=== PATIENT | male | born 1950 | race Caucasian/White ===

== ENCOUNTER 2023-08-12 10:28 | Outpatient (AMB) | payer BC, SELFPAY ==
--- NOTE | 2023-08-12 10:39 | A.OFFPC_ITS ---
Vital Signs 08/12/23 10:51 08/12/23 10:59 Height 6 ft 1.23 in Weight 286 lb 6 oz BMI 37.5 BP 142/54 H 140/54 H Blood Pressure Location Lt brachial Lt radial Position Sitting Sitting Respiration 16 Pulse 74 Pulse Source Pulse Oximeter Temp 97.4 F Temp Source Oral Pulse Oximetry (%) 96 Oxygen Delivery Method Room Air Intake Visit Reasons: Establish Care transfer from [facility] Intake Note: New patient visit. Allergies exenatide [From [facility]] Adverse Reaction (Intermediate, Verified 08/12/23 14:38) Vomiting Medication List - Last Reconciled 08/12/23 by Joelle Bowling MD amlodipine 10 mg PO DAILY atorvastatin 80 mg PO DAILY carvedilol 25 mg PO DAILY chlorthalidone 12.5 mg PO QAM clopidogrel 75 mg PO DAILY hydralazine 25 mg PO QID levothyroxine (Synthroid) 75 mcg PO DAILY losartan 100 mg PO DAILY metformin 1,000 mg PO BID nitroglycerin mg sublingual oxycodone 5 mg PO QID PRN pioglitazone 30 mg PO DAILY tamsulosin 0.8 mg PO DAILY Tobacco use date assessed: 08/12/23 Fall risk assessment: 2 + Falls in past year Last assessed Fall Risk: 08/12/23 Dental Screening Dental Screen Date: 08/12/23 Did you have a dental visit in the last 12 months?: Yes Did you have a dental problem in the last 6 months where you did not have access to dental care?: No Was dental information given to patient?: Patient has dentist HPI HPI Comments History of Present Illness Details The patient is a 72 year old male with a past medical history of CAD s/p PCI 2006, HFPEF, hypertension, hyperlipidemia, type 2 diabetes, obesity presenting for follow up Endocrine-type 2 diabetes. On metformin & actos. Off insulin. POC A1C today is 6.9%. CAD, CKD stage 3. Eye exam UTD Dr Morales. Intolerant GLP. Hypothyroid- stable on levothyroxine CV: Follows with cardiology, Dr Perkins. On amlodipine, losartan, ASA, chlorthalidone, hydralazine, metoprolol and plavix. s/p PCI 2006, [place] post procedure. NTG prn-about 2x/year. Chronic NELSON, stable. Denies chest pain, palpitations. Echo 12/2020 mild dilation ascending aorta grade 1 diastolic dysfunction EF 55-60% Heme/Onc: Mild anemia. cologuard (-). Refuses colonoscopy. Chronic post prandial nausea. On oral B12. GI: Hepatic steatosis: CT abd/pelvis 2019 hepatic steatosis PFSH Medical History (Updated 08/12/23 @ 14:37 by Joelle Bowling MD) Hernia Severe obesity (BMI 35.0-35.9 with comorbidity) Seasonal allergies Pain in thoracic spine Obstructive sleep apnea syndrome Neoplasm of skin Mild anemia Loss of hearing Cognitive impairment Hypothyroidism Hyperlipidemia Hx of myocardial infarction Hepatic steatosis Diabetes mellitus Chronic kidney disease, stage 3 Chest pain Cervical spondylarthritis Benign prostatic hyperplasia Benign essential HTN Surgical History (Updated 08/12/23 @ 10:59 by Jovana Amado CMA) Hx of appendectomy H/O angioplasty H/O eye surgery Social History Housing: House Patient Tobacco Use Status: Former Tobacco user Cigarette Packs Per Day: 2 Years Smoked: 25 e-Cigarette/Vaping Use: Never Used Second Hand Smoke Exposure: Yes (past) service: Yes Current occupational status: retired Cognitive needs: No Hearing needs: No Vision needs: Yes (glasses) Review of Systems Const Details: ROS CONSTITUTIONAL: Denies weight loss, fever and chills. HEENT: Denies changes in vision and hearing. RESPIRATORY: Denies SOB and cough. CV: Denies palpitations and CP GI: Denies abdominal pain, nausea, vomiting and diarrhea. : Denies dysuria and urinary frequency. MSK: Denies new myalgia and joint pain. SKIN: Denies rash and pruritus. NEUROLOGICAL: Denies headache PSYCHIATRIC: Denies recent changes in mood. Physical exam (Primary Care) Vital Signs: Last Vital Signs Temp 97.4 F 08/12/23 10:51 Pulse 74 08/12/23 10:51 Resp 16 08/12/23 10:51 BP 140/54 H 08/12/23 10:59 Pulse Ox 96 08/12/23 10:51 Oxygen Delivery Method Room Air 08/12/23 10:51 PHYSICAL EXAM: GENERAL: Alert and oriented x 3. NAD EYES: EOMI. Anicteric. HENT: Moist mucous membranes. No scleral icterus. No cervical lymphadenopathy. LUNGS: Clear to auscultation bilaterally. CARDIOVASCULAR: Regular rate and rhythm. No murmur. No JVD. ABDOMEN: Soft, non-tender +bs EXTREMITIES: No edema. Non-tender. SKIN: No rashes or lesions. Warm. NEUROLOGIC: No focal neurological deficits. PSYCHIATRIC: Cooperative. Appropriate mood and affect BMI result Body Mass Index 37.5 Tobacco/Smoking Status: Tobacco use Status Tobacco use date assessed 08/12/23 08/12/23 10:47 Patient Tobacco Use Status Former Tobacco user 08/12/23 10:47 e-Cigarette/Vaping Use Never Used 08/12/23 10:47 Results AMB Hemoglobin A1c AMB Hemoglobin A1c 6.9 % Last Edit by Jovana Amado CMA on 08/12/23 11:14 Results Reviewed Results Reviewed: Laboratory Last Values Hgb A1c (Clinic) 6.9 % (4.0-6.0) H 08/12/23 11:14 Assessment and Plan Assessment & Plan (1) CAD (coronary artery disease): Comment: stable. continue follow up with cardiology Code(s): I25.10 - Atherosclerotic heart disease of [place] coronary artery without angina pectoris Qualifiers: Associated angina: with stable angina Coronary Disease-Associated Artery/Lesion type: [place] artery [place] vs. transplanted heart: [place] heart Qualified Code(s): I25.118 - Atherosclerotic heart disease of [place] coronary artery with other forms of angina pectoris (2) Type 2 diabetes mellitus: Comment: well controlled on current regimen. continued efforts at weight loss Code(s): E11.9 - Type 2 diabetes mellitus without complications Qualifiers: Chronic kidney disease stage: stage 3 (moderate) Chronic kidney disease stage 3 subtype: unspecified whether 3a or 3b Diabetes mellitus complication detail: with chronic kidney disease Diabetes mellitus complication status: with kidney complications Diabetes mellitus retirement insulin use: without termite control representative use Qualified Code(s): E11.22 - Type 2 diabetes mellitus with diabetic chronic kidney disease; N18.30 - Chronic kidney disease, stage 3 unspecified (3) Chronic kidney disease, stage 3: Code(s): N18.30 - Chronic kidney disease, stage 3 unspecified Qualifiers: Chronic kidney disease stage 3 subtype: unspecified whether 3a or 3b Qualified Code(s): N18.30 - Chronic kidney disease, stage 3 unspecified (4) Hx of myocardial infarction: Code(s): I25.2 - Old myocardial infarction (5) Family history of factor V Leiden mutation: Comment: Lab ordered Code(s): Z83.2 - Family history of diseases of the blood and blood-forming organs and certain disorders involving the immune mechanism Orders: Orders AMB Hemoglobin A1c 08/12/23 E11.9 - Type 2 diabetes mellitus without complications Factor V Leiden 08/12/23 I25.118 - Atherosclerotic heart disease of [place] coronary artery with other forms of angina pectoris, Z83.2 - Family history of diseases of the blood and blood-forming organs and certain disorders involving the immune mechanism Coding Level of Care Code Est Pt Level 5 (91771) Complex EM visit Add On G2211 Diagnoses Coronary artery disease of [place] artery of [place] heart with stable angina pectoris I25.118 Associated angina: with stable angina Coronary Disease-Associated Artery/Lesion type: [place] artery [place] vs. transplanted heart: [place] heart Type 2 diabetes mellitus with stage 3 chronic kidney disease, without long-term current use of insulin, unspecified whether stage 3a or 3b CKD E11.22; N18.30 Chronic kidney disease stage: stage 3 (moderate) Chronic kidney disease stage 3 subtype: unspecified whether 3a or 3b Diabetes mellitus complication detail: with chronic kidney disease Diabetes mellitus complication status: with kidney complications Diabetes mellitus retirement insulin use: without retirement use Stage 3 chronic kidney disease, unspecified whether stage 3a or 3b CKD N18.30 Chronic kidney disease stage 3 subtype: unspecified whether 3a or 3b Hx of myocardial infarction I25.2 Family history of factor V Leiden mutation Z83.2 Time Spent (min) 46
[2023-08-12 10:51] VITALS: BP 142/54; PULSE 74; RESP 16; TEMP 36.3; O2SAT 96; BMI 37.5
[2023-08-12 10:59] VITALS: BP 140/54
== END 2023-08-12 11:46 | disposition home or self-care (01) ==
PROVIDERS: Visit Provider Internal Medicine
DX: I25.118 Atherosclerotic heart disease of native coronary artery with other forms of angina pectoris (principal); E11.22 Type 2 diabetes mellitus with diabetic chronic kidney disease; N18.30 Chronic kidney disease, stage 3 unspecified; I25.2 Old myocardial infarction; Z83.2 Family history of diseases of the blood and blood-forming organs and certain disorders involving the immune mechanism
CPT/HCPCS: 83036; 99215

== ENCOUNTER 2023-08-12 11:36 | Outpatient (REF) | payer BC, SELFPAY ==
[2023-08-12 14:20] LABS: MANUAL DIFF FLAG NO
[2023-08-12 14:34] LABS: Basophils Percent Auto 0.4 % (0-2); Eosinophils Absolute Auto 0.2 X10*3/uL (0.0-0.4); Eosinophils Percent Auto 2.3 % (0-4); Hematocrit 36.9 % (42.0-52.0); Imm Gran Abs Auto 0.06 X10*3/uL (0.00-0.03); Imm Gran Pct Auto 0.8 % (0.0-0.4); Lymphocytes Absolute Auto 1.4 X10*3/uL (1.2-4.9); Lymphocytes Percent Auto 17.3 % (20-40); Mean Corpuscular HGB Conc 32.5 g/dl (31.0-36.0); Mean Corpuscular Hemoglobin 30.7 pg (27.0-33.0); Mean Corpuscular Volume 94.4 fL (80.0-98.0); Mean Platelet Volume 10.9 fL (9.4-12.4); Monocytes Absolute Auto 0.6 X10*3/uL (0.1-1.2); Monocytes Percent Auto 7.8 % (2-11); Neutrophils Absolute Auto 5.6 x10*3/uL (2.0-8.3); Neutrophils Percent Auto 71.4 % (45-73); Platelet Count 225 X10*3/uL (160-400); Red Blood Count 3.91 X10*6/uL (4.60-5.80); Red Cell Distribution Width 13.3 % (11.0-16.0); White Blood Count 7.9 X10*3/uL (4.8-10.8)
[2023-08-12 14:40] LABS: Alanine Aminotransferase 26 U/L (0-40); Albumin Level 4.4 g/dL (3.5-5.0); Alkaline Phosphatase 60 U/L (39-117); Anion Gap 17 (12-20); Aspartate Amino Transferase 18 U/L (5-37); Bilirubin Total 0.4 mg/dL (0.0-1.0); Blood Urea Nitrogen 32 mg/dL (9-16); Calcium 10.1 mg/dL (8.4-10.2); Carbon Dioxide 24 mmol/L (22-29); Chloride 107 mmol/L (96-108); Cholesterol 84 mg/dL (<200); Estimated Glomerular Filt Rate 53; Glucose Random 212 mg/dL (60-115); HDL Cholesterol 35 mg/dL (>40); LDL Cholesterol Calculated 34 mg/dL (<100); Potassium 4.2 mmol/L (3.3-5.1); Sodium 144 mmol/L (135-145); Total Protein 7.6 g/dL (6.5-8.0); Triglycerides 78 mg/dL (<150)
[2023-08-12 14:57] LABS: Estimated Average Glucose 146 mg/dL; Hemoglobin A1c % 6.7 % (<6.0)
[2023-08-12 14:58] LABS: Prostate Specific Antigen 0.72 ng/mL (<0.05-4.0)
[2023-08-21 20:38] LABS: Factor V Leiden NEGATIVE
== END 2023-08-12 11:37 | disposition home or self-care (01) ==
LOC: HO.WFDLDS 11:36
PROVIDERS: Visit Provider Internal Medicine
DX: E11.9 Type 2 diabetes mellitus without complications (principal); Z13.0 Encounter for screening for diseases of the blood and blood-forming organs and certain disorders involving the immune mechanism; Z12.5 Encounter for screening for malignant neoplasm of prostate; Z83.2 Family history of diseases of the blood and blood-forming organs and certain disorders involving the immune mechanism; I25.118 Atherosclerotic heart disease of native coronary artery with other forms of angina pectoris
CPT/HCPCS: 36415; 80053; 80061; 81241; 83036; 84153; 85025

== ENCOUNTER 2023-10-22 09:19 | Outpatient (REF) | payer BC, SELFPAY ==
[2023-10-22 11:26] LABS: Estimated Average Glucose 137 mg/dL; Hemoglobin A1c % 6.4 % (<6.0)
[2023-10-22 12:20] LABS: Alanine Aminotransferase 35 U/L (0-40); Albumin Level 4.3 g/dL (3.5-5.0); Alkaline Phosphatase 52 U/L (39-117); Anion Gap 11 (12-20); Aspartate Amino Transferase 21 U/L (5-37); Bilirubin Total 0.5 mg/dL (0.0-1.0); Blood Urea Nitrogen 26 mg/dL (9-16); Calcium 9.5 mg/dL (8.4-10.2); Carbon Dioxide 28 mmol/L (22-29); Chloride 105 mmol/L (96-108); Cholesterol 80 mg/dL (<200); Estimated Glomerular Filt Rate 57; Glucose Random 150 mg/dL (60-115); HDL Cholesterol 35 mg/dL (>40); Potassium 4.2 mmol/L (3.3-5.1); Sodium 140 mmol/L (135-145); Total Protein 7.5 g/dL (6.5-8.0)
[2023-10-22 12:29] LABS: LDL Cholesterol Calculated 17 mg/dL (<100); Triglycerides 142 mg/dL (<150)
== END 2023-10-22 09:20 | disposition home or self-care (01) ==
LOC: HO.WFDLDS 09:19
PROVIDERS: Visit Provider Internal Medicine
DX: E11.9 Type 2 diabetes mellitus without complications (principal)
CPT/HCPCS: 36415; 80053; 80061; 83036

== ENCOUNTER 2023-11-02 09:20 | Outpatient (AMB) | payer BC, SELFPAY ==
--- NOTE | 2023-11-02 09:27 | MHC.PC.OV ---
Vital Signs 11/02/23 09:28 Height 6 ft 1.23 in Weight 292 lb BMI 38.3 BP 140/62 H Blood Pressure Location Lt brachial Position Sitting Respiration 12 Pulse 89 Pulse Source Pulse Oximeter Pulse Oximetry (%) 96 Oxygen Delivery Method Room Air Intake Visit Reasons: DM Intake Note: Patient is her to discuss DM. Refrigeration Systems Installer Required: No Accompanied by: Self / Same As Patient Allergies exenatide [From [facility]] Adverse Reaction (Intermediate, Verified 11/02/23 09:33) Vomiting Tobacco use date assessed: 08/12/23 Dental Screening Dental Screen Date: 08/12/23 HPI HPI Comments History of Present Illness Details The patient is a 73 year old male with a past medical history of CAD s/p PCI 2006, HFPEF, hypertension, hyperlipidemia, type 2 diabetes, obesity presenting for follow up Endocrine-type 2 diabetes. On metformin & actos. Off insulin. Recent A1C 6.4%. CAD, CKD stage 3. Eye exam UTD Dr Morales. Intolerant GLP. Hypothyroid-stable on levothyroxine CV: Follows with cardiology, Dr Perkins. On amlodipine, losartan, ASA, chlorthalidone, hydralazine, metoprolol and plavix. s/p PCI 2006, [place] post procedure. NTG prn-about 2x/year. Chronic NELSON, stable. Denies chest pain, palpitations. Echo 12/2020 mild dilation ascending aorta grade 1 diastolic dysfunction EF 55-60% Heme/Onc: Mild anemia. cologuard (-). Refuses colonoscopy. Chronic post prandial nausea. On oral B12. GI: Hepatic steatosis: CT abd/pelvis 2019 hepatic steatosis Eye exam 10/2023-no retinopathy. Will likely have an upcoming cataract surgery ROS see HPI PHYSICAL EXAM: GENERAL: Alert and oriented x 3. NAD EYES: EOMI. Anicteric. HENT: Moist mucous membranes. No scleral icterus. No cervical lymphadenopathy. LUNGS: Clear to auscultation bilaterally. CARDIOVASCULAR: Regular rate and rhythm. No murmur. No JVD. ABDOMEN: Soft, non-tender +bs EXTREMITIES: No edema. Non-tender. SKIN: No rashes or lesions. Warm. NEUROLOGIC: No focal neurological deficits. CN II-XII grossly intact PSYCHIATRIC: Cooperative. Appropriate mood and affect [facility] Medical History Hernia Severe obesity (BMI 35.0-35.9 with comorbidity) Seasonal allergies Pain in thoracic spine Obstructive sleep apnea syndrome Neoplasm of skin Mild anemia Loss of hearing Cognitive impairment Hypothyroidism Hyperlipidemia Hx of myocardial infarction Hepatic steatosis Diabetes mellitus Chronic kidney disease, stage 3 Chest pain Cervical spondylarthritis Benign prostatic hyperplasia Benign essential HTN Surgical History Hx of appendectomy H/O angioplasty H/O eye surgery Social History Housing: House Patient Tobacco Use Status: Former Tobacco user Cigarette Packs Per Day: 2 Years Smoked: 25 e-Cigarette/Vaping Use: Never Used Second Hand Smoke Exposure: Yes (past) service: Yes Current occupational status: retired Cognitive needs: No Hearing needs: No Vision needs: Yes (glasses) Physical exam (Primary Care) Vital Signs: Last Vital Signs Pulse 89 11/02/23 09:28 Resp 12 11/02/23 09:28 BP 140/62 H 11/02/23 09:28 Pulse Ox 96 11/02/23 09:28 Oxygen Delivery Method Room Air 11/02/23 09:28 BMI result Body Mass Index 38.3 Tobacco/Smoking Status: Tobacco use Status Tobacco use date assessed 08/12/23 11/02/23 09:34 Patient Tobacco Use Status Former Tobacco user 11/02/23 09:34 e-Cigarette/Vaping Use Never Used 11/02/23 09:34 Assessment and Plan Assessment & Plan (1) Type 2 diabetes mellitus: Code(s): E11.9 - Type 2 diabetes mellitus without complications Qualifiers: Diabetes mellitus retirement insulin use: without retirement use Diabetes mellitus complication status: with kidney complications Diabetes mellitus complication detail: with chronic kidney disease Chronic kidney disease stage: stage 3 (moderate) Chronic kidney disease stage 3 subtype: unspecified whether 3a or 3b Qualified Code(s): E11.22 - Type 2 diabetes mellitus with diabetic chronic kidney disease; N18.30 - Chronic kidney disease, stage 3 unspecified Plan: Controlled on current medications (2) Hypothyroidism: Code(s): E03.9 - Hypothyroidism, unspecified Qualifiers: Hypothyroidism type: unspecified Qualified Code(s): E03.9 - Hypothyroidism, unspecified Plan: Clinically and biochemically euthyroid (3) Chronic kidney disease, stage 3: Code(s): N18.30 - Chronic kidney disease, stage 3 unspecified Qualifiers: Chronic kidney disease stage 3 subtype: unspecified whether 3a or 3b Qualified Code(s): N18.30 - Chronic kidney disease, stage 3 unspecified Plan: stable Orders: Orders Comprehensive Met. Panel 4 Months E03.9 - Hypothyroidism, unspecified, E11.22 - Type 2 diabetes mellitus with diabetic chronic kidney disease, E11.9 - Type 2 diabetes mellitus without complications, N18.30 - Chronic kidney disease, stage 3 unspecified Hemoglobin A1c 4 Months E03.9 - Hypothyroidism, unspecified, E11.22 - Type 2 diabetes mellitus with diabetic chronic kidney disease, E11.9 - Type 2 diabetes mellitus without complications, N18.30 - Chronic kidney disease, stage 3 unspecified IRON PROFILE 4 Months E03.9 - Hypothyroidism, unspecified, E11.22 - Type 2 diabetes mellitus with diabetic chronic kidney disease, N18.30 - Chronic kidney disease, stage 3 unspecified Complete Blood Count Auto Diff 4 Months E03.9 - Hypothyroidism, unspecified, E11.22 - Type 2 diabetes mellitus with diabetic chronic kidney disease, E11.9 - Type 2 diabetes mellitus without complications, N18.30 - Chronic kidney disease, stage 3 unspecified Lipid Panel 4 Months E03.9 - Hypothyroidism, unspecified, E11.22 - Type 2 diabetes mellitus with diabetic chronic kidney disease, E11.9 - Type 2 diabetes mellitus without complications, N18.30 - Chronic kidney disease, stage 3 unspecified Prostate Specific Antigen 4 Months E03.9 - Hypothyroidism, unspecified, E11.22 - Type 2 diabetes mellitus with diabetic chronic kidney disease, E11.9 - Type 2 diabetes mellitus without complications, N18.30 - Chronic kidney disease, stage 3 unspecified TSH reflex Free T4 4 Months E03.9 - Hypothyroidism, unspecified, E11.22 - Type 2 diabetes mellitus with diabetic chronic kidney disease, N18.30 - Chronic kidney disease, stage 3 unspecified Vitamin B12 and Folate 4 Months E03.9 - Hypothyroidism, unspecified, E11.22 - Type 2 diabetes mellitus with diabetic chronic kidney disease, N18.30 - Chronic kidney disease, stage 3 unspecified Coding Level of Care Code Est Pt Level 4 (25484) Diagnoses Type 2 diabetes mellitus with stage 3 chronic kidney disease, without long-term current use of insulin, unspecified whether stage 3a or 3b CKD E11.22; N18.30 Diabetes mellitus retirement insulin use: without technician terminal and repeater use Diabetes mellitus complication status: with kidney complications Diabetes mellitus complication detail: with chronic kidney disease Chronic kidney disease stage: stage 3 (moderate) Chronic kidney disease stage 3 subtype: unspecified whether 3a or 3b Hypothyroidism, unspecified type E03.9 Hypothyroidism type: unspecified Stage 3 chronic kidney disease, unspecified whether stage 3a or 3b CKD N18.30 Chronic kidney disease stage 3 subtype: unspecified whether 3a or 3b
[2023-11-02 09:28] VITALS: BP 140/62; PULSE 89; RESP 12; O2SAT 96; BMI 38.3
== END 2023-11-02 10:15 | disposition home or self-care (01) ==
PROVIDERS: PCP Internal Medicine; Visit Provider Internal Medicine
DX: E11.22 Type 2 diabetes mellitus with diabetic chronic kidney disease (principal); N18.30 Chronic kidney disease, stage 3 unspecified; E03.9 Hypothyroidism, unspecified
CPT/HCPCS: 99214

== ENCOUNTER 2024-03-07 15:10 | Outpatient (REF) | payer BC, SELFPAY ==
[2024-03-07 17:45] LABS: MANUAL DIFF FLAG NO
[2024-03-07 17:59] LABS: Basophils Percent Auto 0.4 % (0-2); Eosinophils Absolute Auto 0.2 X10*3/uL (0.0-0.4); Eosinophils Percent Auto 2.1 % (0-4); Hemoglobin 11.9 g/dl (14.0-18.0); Imm Gran Abs Auto 0.02 X10*3/uL (0.00-0.03); Imm Gran Pct Auto 0.3 % (0.0-0.4); Lymphocytes Absolute Auto 1.3 X10*3/uL (1.2-4.9); Mean Corpuscular Hemoglobin 30.9 pg (27.0-33.0); Mean Corpuscular Volume 90.9 fL (80.0-98.0); Mean Platelet Volume 10.5 fL (9.4-12.4); Monocytes Absolute Auto 0.8 X10*3/uL (0.1-1.2); Monocytes Percent Auto 10.7 % (2-11); Neutrophils Absolute Auto 4.9 x10*3/uL (2.0-8.3); Neutrophils Percent Auto 68.5 % (45-73); Platelet Count 221 X10*3/uL (160-400); Red Blood Count 3.85 X10*6/uL (4.60-5.80); White Blood Count 7.1 X10*3/uL (4.8-10.8)
[2024-03-07 18:15] LABS: Estimated Average Glucose 126 mg/dL; Hemoglobin A1C 129.4513 umol/L
[2024-03-07 18:34] LABS: Alanine Aminotransferase 31 U/L (0-40); Albumin Level 4.4 g/dL (3.5-5.0); Alkaline Phosphatase 56 U/L (39-117); Anion Gap 11 (12-20); Aspartate Amino Transferase 53 U/L (5-37); Bilirubin Total 0.5 mg/dL (0.0-1.0); Blood Urea Nitrogen 21 mg/dL (9-16); Calcium 9.5 mg/dL (8.4-10.2); Carbon Dioxide 25 mmol/L (22-29); Chloride 103 mmol/L (96-108); Cholesterol 72 mg/dL (<200); Estimated Glomerular Filt Rate > 60; Glucose Random 113 mg/dL (60-115); HDL Cholesterol 27 mg/dL (>40); Iron 82 mcg/dL (45-160); LDL Cholesterol Calculated 27 mg/dL (<100); Percent Iron Saturation 25 % (15-50); Potassium 3.8 mmol/L (3.3-5.1); Sodium 135 mmol/L (135-145); TSH reflex Free T4 1.71 uIU/mL (0.32-4.0); Total Iron Binding Capacity 332 mcg/dL (228-428); Total Protein 7.3 g/dL (6.5-8.0); Triglycerides 92 mg/dL (<150); Unsaturated Iron Binding 250 ug/dL
[2024-03-07 18:48] LABS: Folate 15.9 ng/mL (> or = 4.0); Prostate Specific Antigen 0.71 ng/mL (<0.05-4.0); Vitamin B12 1163 pg/mL (200-900)
== END 2024-03-07 15:11 | disposition home or self-care (01) ==
LOC: HO.WFDLDS 15:10
PROVIDERS: Visit Provider Internal Medicine
DX: E11.9 Type 2 diabetes mellitus without complications (principal); E03.9 Hypothyroidism, unspecified; E11.22 Type 2 diabetes mellitus with diabetic chronic kidney disease; N18.30 Chronic kidney disease, stage 3 unspecified; Z12.5 Encounter for screening for malignant neoplasm of prostate
CPT/HCPCS: 36415; 80053; 80061; 82607; 82746; 83036; 83540; 84153; 84443; 85025

== ENCOUNTER 2024-03-14 08:05 | Outpatient (AMB) | payer BC, SELFPAY ==
--- NOTE | 2024-03-14 08:20 | A.OFFPC_ITS ---
Vital Signs 03/14/24 08:28 Height 6 ft 1.23 in Weight 285 lb BMI 37.4 BP 136/52 L Blood Pressure Location Lt brachial Position Sitting Pulse 65 Pulse Source Pulse Oximeter Pulse Oximetry (%) 96 Intake Visit Reasons: physical exam/MWV Intake Note: Physical. Glucose this morning was 135. Needs refill on Oxycodone. Dye Worker Required: No Allergies exenatide [From Byd[employer]] Adverse Reaction (Intermediate, Verified 03/14/24 08:23) Vomiting Tobacco use date assessed: 08/12/23 Fall risk assessment: 2 + Falls in past year Last assessed Fall Risk: 03/14/24 Dental Screening Dental Screen Date: 08/12/23 HPI HPI Comments History of Present Illness Details The patient is a 73 year old male with a past medical history of RICARDO on cpap, CAD s/p PCI 2006, HFPEF, hypertension, hyperlipidemia, type 2 diabetes, obesity presenting for [facility] Endocrine-type 2 diabetes. On metformin & actos. Off insulin. Recent A1C 6.0%. CAD, CKD stage 3. Eye exam UTD Dr Morales. Intolerant GLP. Hypothyroid-stable on levothyroxine CV: Follows with cardiology, Dr Perkins. On amlodipine, losartan, ASA, chlorth alidone, hydralazine, metoprolol and plavix. s/p PCI 2006, [place] post procedure. NTG prn-about 2x/year. Chronic NELSON, stable. Denies chest pain, palpitations. Echo 12/2020 mild dilation ascending aorta grade 1 diastolic dysfunction EF 55- 60% Heme/Onc: Mild anemia. cologuard (-). Has refused colonoscopy. Chronic post prandial nausea. On oral B12. Willing to consider today as he does endorse frequent daily fatigue. Denies blood loss. Does endorse daily anxiety, some depression MSK: Worsened low back pain-daily. Stopping him from doing exercise. Would consider referral but is leaving for [place] GI: Hepatic steatosis: CT abd/pelvis 2019 hepatic steatosis Eye exam 10/2023-no retinopathy. Will likely have an upcoming cataract surgery Care team HRA reviewed. Independent. (-) fall. 3/3 recall Medications reconciled ROS see HPI PHYSICAL EXAM: GENERAL: Alert and oriented x 3. NAD EYES: EOMI. Anicteric. HENT: Moist mucous membranes. No scleral icterus. No cervical lymphadenopathy. LUNGS: Clear to auscultation bilaterally. CARDIOVASCULAR: Regular rate and rhythm. No murmur. No JVD. ABDOMEN: Soft, non-tender +bs EXTREMITIES: No edema. Non-tender. SKIN: No rashes or lesions. Warm. NEUROLOGIC: No focal neurological deficits. CN II-XII grossly intact PSYCHIATRIC: Cooperative. Appropriate mood and affect [facility] Medical History Hernia Severe obesity (BMI 35.0-35.9 with comorbidity) Seasonal allergies Pain in thoracic spine Obstructive sleep apnea syndrome Neoplasm of skin Mild anemia Loss of hearing Cognitive impairment Hypothyroidism Hyperlipidemia Hx of myocardial infarction Hepatic steatosis Diabetes mellitus Chronic kidney disease, stage 3 Chest pain Cervical spondylarthritis Benign prostatic hyperplasia Benign essential HTN Surgical History Hx of appendectomy H/O angioplasty H/O eye surgery Social History (Updated 03/14/24 @ 08:28 by Jovana Amado CMA) Housing: House Alcohol intake: former Comment: hasnt drank in 37 years Patient Tobacco Use Status: Former Tobacco user Cigarette Packs Per Day: 2 Years Smoked: 25 e-Cigarette/Vaping Use: Never Used Second Hand Smoke Exposure: Yes (past) service: Yes Current occupational status: retired Cognitive needs: No Hearing needs: No Vision needs: Yes (glasses) Questionnaire PHQ-9 Over the last 2 weeks, how often have you been bothered by any of the following problems? 1. Little interest or pleasure in doing things: more than half the days 2. Feeling down, depressed, or hopeless: not at all 3. Trouble falling or staying asleep, or sleeping too much: nearly every day 4. Feeling tired or having little energy: nearly every day 5. Poor appetite or overeating: nearly every day 6. Feeling bad about yourself - or that you are a failure or have let yourself or your family down: more than half the days 7. Trouble concentrating on things, such as reading the newspaper or watching television: not at all 8. Moving or speaking so slowly that other people could have noticed. Or the opposite - being so fidgety or restless that you have been moving around a lot more than usual: nearly every day 9. Thoughts that you would be better off or of hurting yourself in some way: not at all Total score: 16 Depression Screening Interpretation: Positive Depression Screening Follow-up: Existing condition Depression Screening Done: Yes 52321 - PHQ-9 Billing: Yes Source: Developed by Drs. Roosevelt Hood, Tracee Calle, Stephon Kennedy and colleagues, with an educational rachel from [employer]. Thrive Questionnaire Date Thrive assessed: 03/07/24 I am a: Patient What is your living situation today?: I have a steady place to live Within the past 12 months, did the food you bought not last and you didn't have the money to get more?: Never true Within the past 12 months, did you worry whether your food would run out before you got money to buy more?: Never true Do you have trouble paying for medicines?: No Do you have trouble getting transportation to medical appointments?: No Do you have trouble paying your heating and electricity bill?: No Do you have trouble taking care of your child, family member or friend?: No Do you have trouble with day-to-day activities such as bathing, preparing meals, shopping, managing finances, etc.?: No Are you currently unemployed and looking for a job?: No Are you interested in more education?: No Please select the resources that you would like help with: None Currently or been in a relationship where the following occur: No concerns reported THRIVE Score: 0 AUDIT C Alcohol Use Questionnaire (AUDIT-C) 1. How often do you have a drink containing alcohol?: Never 3. How often do you have six or more drinks on one occasion?: Never Total Score: 0 SHANNAN-7 AMB Questionnaire SHANNAN-7 Date SHANNAN - 7 assessed: 03/14/24 Feeling nervous, anxious, or on edge: 2 = More than half the days Not being able to stop or control worryin = More than half the days Worrying too much about different things: 2 = More than half the days Trouble relaxin = Several days Being so restless that it is hard to sit still: 0 = Not at all Becoming easily annoyed or irritable: 1 = Several days Feeling afraid as if something awful might happen: 1 = Several days Total SHANNAN-7 score (0-4 normal; 5-9 mild; 10-14 moderate; 15-21 severe): 9 Source: Developed by Drs. Roosevelt Hood, Tracee Calle, Stephon Kennedy and colleagues, with an educational rachel from [employer]. SHANNAN-7 Assessment Billing SHANNAN-7 Assessment Tool: SHANNAN-7 Assessment 15990 Physical exam (Primary Care) Vital Signs: Last Vital Signs Pulse 65 03/14/24 08:28 BP 136/52 L 03/14/24 08:28 Pulse Ox 96 03/14/24 08:28 BMI result Body Mass Index 37.4 Tobacco/Smoking Status: Tobacco use Status Tobacco use date assessed 08/12/23 03/14/24 08:20 Patient Tobacco Use Status Former Tobacco user 03/14/24 08:28 e-Cigarette/Vaping Use Never Used 03/14/24 08:28 PHQ-9: PHQ-9 Score PHQ-9: Total score 16 03/16/24 14:54 Depression Screening Interpretation: Positive Depression Screening Follow-up: Existing condition Thrive Assessment: Date of Thrive Assessment Date Thrive assessed 03/07/24 03/14/24 08:20 Currently or been in a relationship where the following occur: No concerns reported Coding Level of Care Code Est Pt Level 4 (64404) Diagnoses Annual wellness visit Z00.00 Type 2 diabetes mellitus with diabetic autonomic neuropathy, without long-term current use of insulin E11.43 Diabetes mellitus complication detail: with autonomic neuropathy Diabetes mellitus complication status: with neurologic complications Diabetes mellitus marketing development manager insulin use: without marketing development manager use Diabetes mellitus type: type 2 Additional Codes SHANNAN-7 Assessment Billing - SHANNAN-7 Assessment Tool: SHANNAN-7 Assessment 05553 ([id number]) PHQ-9 - 88916 - PHQ-9 Billing: Yes ([id number]) Assessment & Plan Assessment & Plan (1) Annual wellness visit: Code(s): Z00.00 - Encounter for general adult medical examination without abnormal findings Category: Medical Plan: See HPI Fatigue-referral to GI (2) Diabetes mellitus: Code(s): E11.9 - Type 2 diabetes mellitus without complications Category: Medical Qualifiers: Diabetes mellitus complication detail: with autonomic neuropathy Diabetes mellitus complication status: with neurologic complications Diabetes mellitus marketing development manager insulin use: without correction use Diabetes mellitus type: type 2 Qualified Code(s): E11.43 - Type 2 diabetes mellitus with diabetic autonomic (poly)neuropathy Plan: Controlled. decrease actos to 15mg daily Orders: Orders Lipid Panel 4 Months E11.9 - Type 2 diabetes mellitus without complications, N18.30 - Chronic kidney disease, stage 3 unspecified, Z00.00 - Encounter for general adult medical examination without abnormal findings IRON PROFILE 4 Months E11.9 - Type 2 diabetes mellitus without complications, N18.30 - Chronic kidney disease, stage 3 unspecified, Z00.00 - Encounter for general adult medical examination without abnormal findings Hemoglobin A1c 4 Months E11.9 - Type 2 diabetes mellitus without complications, N18.30 - Chronic kidney disease, stage 3 unspecified, Z00.00 - Encounter for general adult medical examination without abnormal findings Comprehensive Met. Panel 4 Months E11.9 - Type 2 diabetes mellitus without complications, N18.30 - Chronic kidney disease, stage 3 unspecified, Z00.00 - Encounter for general adult medical examination without abnormal findings Medications: New sertraline Take 1/2 tab oral once daily for one week then increase to one tablet oral daily 25 mg PO DAILY 90 tabs 0RF pioglitazone 15 mg PO DAILY 90 tabs 3RF Changed From oxycodone 5 mg PO QID PRN 112 tabs 0RF pain To oxycodone partial fill upon patient request May pay out of pocket 5 mg PO QID 7 days PRN 28 tabs 0RF pain Refilled oxycodone 5 mg PO QID PRN 112 tabs 0RF pain Discontinued pioglitazone Discontinued Reason: Doctor's Order 30 mg PO DAILY 90 tabs 3RF
[2024-03-14 08:28] VITALS: BP 136/52; PULSE 65; O2SAT 96; BMI 37.4
== END 2024-03-14 09:12 | disposition home or self-care (01) ==
PROVIDERS: PCP Internal Medicine; Visit Provider Internal Medicine
DX: Z00.00 Encounter for general adult medical examination without abnormal findings (principal); E11.43 Type 2 diabetes mellitus with diabetic autonomic (poly)neuropathy

== ENCOUNTER 2024-06-28 10:49 | Outpatient (REF) | payer BC, SELFPAY ==
[2024-06-28 15:07] LABS: Estimated Average Glucose 126 mg/dL; Hemoglobin A1C 125.0476 umol/L; Total Hemoglobin (HGBA1C) 2955.5086 umol/L
[2024-06-28 15:22] LABS: Alanine Aminotransferase 25 U/L (0-40); Alkaline Phosphatase 49 U/L (39-117); Anion Gap 11 (12-20); Bilirubin Total 0.4 mg/dL (0.0-1.0); Blood Urea Nitrogen 26 mg/dL (9-16); Calcium 9.1 mg/dL (8.4-10.2); Carbon Dioxide 25 mmol/L (22-29); Chloride 108 mmol/L (96-108); Cholesterol 76 mg/dL (<200); Estimated Glomerular Filt Rate > 60; Glucose Random 125 mg/dL (60-115); HDL Cholesterol 35 mg/dL (>40); Iron 66 mcg/dL (45-160); LDL Cholesterol Calculated 32 mg/dL (<100); Percent Iron Saturation 23 % (15-50); Potassium 3.6 mmol/L (3.3-5.1); Sodium 140 mmol/L (135-145); Total Iron Binding Capacity 292 mcg/dL (228-428); Total Protein 6.8 g/dL (6.5-8.0); Triglycerides 47 mg/dL (<150); Unsaturated Iron Binding 226 ug/dL
[2024-06-28 15:33] LABS: Aspartate Amino Transferase 48 U/L (5-37)
== END 2024-06-28 10:50 | disposition home or self-care (01) ==
LOC: HO.WFDLDS 10:49
PROVIDERS: Visit Provider Internal Medicine
DX: Z00.00 Encounter for general adult medical examination without abnormal findings (principal); N18.30 Chronic kidney disease, stage 3 unspecified; E11.9 Type 2 diabetes mellitus without complications
CPT/HCPCS: 36415; 80053; 80061; 83036; 83540

== ENCOUNTER 2024-07-04 10:10 | Outpatient (AMB) | payer BC, SELFPAY ==
--- NOTE | 2024-07-04 10:27 | MHC.PC.OV ---
Vital Signs 07/04/24 10:32 Height 6 ft 1.23 in Weight 266 lb 8 oz BMI 34.9 BP 134/58 L Blood Pressure Location Rt brachial Position Sitting Respiration 14 Pulse 61 Pulse Source Pulse Oximeter Pulse Oximetry (%) 94 Oxygen Delivery Method Room Air Intake Visit Reasons: f/u respiratory issues Intake Note: Follow up. Has respiratory infection while in [place]. Stopped taking sertraline because of a letter that pt was told not to take with clopidogrel and synthroid. Morphology Teacher Required: No Allergies exenatide [From [employer]] Adverse Reaction (Intermediate, Verified 07/04/24 10:29) Vomiting Tobacco use date assessed: 07/04/24 Dental Screening Dental Screen Date: 08/12/23 HPI HPI Comments History of Present Illness Details The patient is a 74 year old male with a past medical history of RICARDO on cpap, CAD s/p PCI 2006, HFPEF, hypertension, hyperlipidemia, type 2 diabetes, obesity presenting for follow up of breathing issues Patient with recent bronchitis in [place]. Seen at urgent care 06/03 and 06/07. On 06/03 diagnosed with acute cough/URI-prescribed azithromycin and tessalon. Negative for COVID/RSV/flu. CXR was negative. He was prescribed prednisone and cough syrup as well as prn albuterol. Received duoneb and decadron at the visit. Says finally feeling back to normal. No residual cough, wheezing. He lost 20 pounds during his illness Endocrine-type 2 diabetes. On metformin & actos. Off insulin. Recent A1C 6.0%. CAD, CKD stage 3. Eye exam UTD Dr Morales. Intolerant GLP. Hypothyroid-stable on levothyroxine CV: Follows with cardiology, Dr Perkins. On amlodipine, losartan, ASA, chlorthalidone, hydralazine, metoprolol and plavix. s/p PCI 2006, [place] post procedure. NTG prn-about 2x/year. Chronic NELSON, stable. Denies chest pain, palpitations. Echo 12/2020 mild dilation ascending aorta grade 1 diastolic dysfunction EF 55-60%. Has been having some lightheadedness with sitting to standing or bending over or moving too quickly. Denies vertigo Heme/Onc: Mild anemia. cologuard (-). Has refused colonoscopy. Chronic post prandial nausea. On oral B12. Willing to consider today as he does endorse frequent daily fatigue. Denies blood loss. Does endorse daily anxiety, some depression. Did not start the sertraline but plans to do so MSK: Worsened low back pain-daily. Stopping him from doing exercise. Would consider referral but is leaving for [place] GI: Hepatic steatosis: CT abd/pelvis 2019 hepatic steatosis Eye exam 10/2023-no retinopathy. Will likely have an upcoming cataract surgery ROS see HPI PHYSICAL EXAM: GENERAL: Alert and oriented x 3. NAD EYES: EOMI. Anicteric. HENT: Moist mucous membranes. No scleral icterus. No cervical lymphadenopathy. LUNGS: Clear to auscultation bilaterally. CARDIOVASCULAR: Regular rate and rhythm. No murmur. No JVD. ABDOMEN: Soft, non-tender +bs EXTREMITIES: No edema. Non-tender. SKIN: No rashes or lesions. Warm. NEUROLOGIC: No focal neurological deficits. CN II-XII grossly intact PSYCHIATRIC: Cooperative. Appropriate mood and affect [facility] Medical History Hernia Severe obesity (BMI 35.0-35.9 with comorbidity) Seasonal allergies Pain in thoracic spine Obstructive sleep apnea syndrome Neoplasm of skin Mild anemia Loss of hearing Cognitive impairment Hypothyroidism Hyperlipidemia Hx of myocardial infarction Hepatic steatosis Diabetes mellitus Chronic kidney disease, stage 3 Chest pain Cervical spondylarthritis Benign prostatic hyperplasia Benign essential HTN Surgical History Hx of appendectomy H/O angioplasty H/O eye surgery Social History Housing: House Alcohol intake: former Comment: hasnt drank in 37 years Patient Tobacco Use Status: Former Tobacco user Cigarette Packs Per Day: 2 Years Smoked: 25 e-Cigarette/Vaping Use: Never Used Second Hand Smoke Exposure: Yes (past) service: Yes Current occupational status: retired Cognitive needs: No Hearing needs: No Vision needs: Yes (glasses) Questionnaire Thrive Questionnaire Date Thrive assessed: 03/07/24 SHANNAN-7 AMB Questionnaire SHANNAN-7 Date SHANNAN - 7 assessed: 03/14/24 Source: Developed by Drs. Roosevelt Hood, Tracee Calle, Stephon Kennedy and colleagues, with an educational rachel from [employer]. Physical exam (Primary Care) Vital Signs: Last Vital Signs Pulse 61 07/04/24 10:32 Resp 14 07/04/24 10:32 BP 134/58 L 07/04/24 10:32 Pulse Ox 94 07/04/24 10:32 Oxygen Delivery Method Room Air 07/04/24 10:32 BMI result Body Mass Index 34.9 Tobacco/Smoking Status: Tobacco use Status Tobacco use date assessed 07/04/24 07/04/24 10:32 Patient Tobacco Use Status Former Tobacco user 07/04/24 10:32 e-Cigarette/Vaping Use Never Used 07/04/24 10:32 Thrive Assessment: Date of Thrive Assessment Date Thrive assessed 03/07/24 07/04/24 10:32 Coding Level of Care Code Est Pt Level 4 (60012) Complex EM visit Add On G2211 Diagnoses Type 2 diabetes mellitus with diabetic autonomic neuropathy, without long-term current use of insulin E11.43 Diabetes mellitus type: type 2 Diabetes mellitus bag loader machine operator insulin use: without bag loader machine operator use Diabetes mellitus complication status: with neurologic complications Diabetes mellitus complication detail: with autonomic neuropathy Stage 3 chronic kidney disease, unspecified whether stage 3a or 3b CKD N18.30 Chronic kidney disease stage 3 subtype: unspecified whether 3a or 3b Type 2 diabetes mellitus with stage 3 chronic kidney disease, without long-term current use of insulin, unspecified whether stage 3a or 3b CKD E11.22; N18.30 Diabetes mellitus bag loader machine operator insulin use: without bag loader machine operator use Diabetes mellitus complication status: with kidney complications Diabetes mellitus complication detail: with chronic kidney disease Chronic kidney disease stage: stage 3 (moderate) Chronic kidney disease stage 3 subtype: unspecified whether 3a or 3b Assessment & Plan Assessment & Plan (1) Diabetes mellitus: Code(s): E11.9 - Type 2 diabetes mellitus without complications Category: Medical Qualifiers: Diabetes mellitus type: type 2 Diabetes mellitus care home insulin use: without bag loader machine operator use Diabetes mellitus complication status: with neurologic complications Diabetes mellitus complication detail: with autonomic neuropathy Qualified Code(s): E11.43 - Type 2 diabetes mellitus with diabetic autonomic (poly)neuropathy (2) Chronic kidney disease, stage 3: Code(s): N18.30 - Chronic kidney disease, stage 3 unspecified Category: Medical Qualifiers: Chronic kidney disease stage 3 subtype: unspecified whether 3a or 3b Qualified Code(s): N18.30 - Chronic kidney disease, stage 3 unspecified (3) Type 2 diabetes mellitus: Code(s): E11.9 - Type 2 diabetes mellitus without complications Category: Medical Qualifiers: Diabetes mellitus bag loader machine operator insulin use: without care home use Diabetes mellitus complication status: with kidney complications Diabetes mellitus complication detail: with chronic kidney disease Chronic kidney disease stage: stage 3 (moderate) Chronic kidney disease stage 3 subtype: unspecified whether 3a or 3b Qualified Code(s): E11.22 - Type 2 diabetes mellitus with diabetic chronic kidney disease; N18.30 - Chronic kidney disease, stage 3 unspecified Plan Urgent care visit reviewed. cough has resolved Diabetes is well controlled. Denies hypoglycemia CV: Blood pressure well controlled. suspect some orthostasis as cause for lightheaded/dizziness. 1/2 amlodipine to 5mg daily. Call with persistent or worsening symptoms Orders: Orders Hemoglobin A1c 3 Months E03.9 - Hypothyroidism, unspecified, E11.22 - Type 2 diabetes mellitus with diabetic chronic kidney disease, E11.43 - Type 2 diabetes mellitus with diabetic autonomic (poly)neuropathy, I25.118 - Atherosclerotic heart disease of [place] coronary artery with other forms of angina pectoris, N18.30 - Chronic kidney disease, stage 3 unspecified Complete Blood Count Auto Diff 3 Months E03.9 - Hypothyroidism, unspecified, E11.22 - Type 2 diabetes mellitus with diabetic chronic kidney disease, E11.43 - Type 2 diabetes mellitus with diabetic autonomic (poly)neuropathy, I25.118 - Atherosclerotic heart disease of [place] coronary artery with other forms of angina pectoris, N18.30 - Chronic kidney disease, stage 3 unspecified Comprehensive Met. Panel 3 Months E03.9 - Hypothyroidism, unspecified, E11.22 - Type 2 diabetes mellitus with diabetic chronic kidney disease, E11.43 - Type 2 diabetes mellitus with diabetic autonomic (poly)neuropathy, I25.118 - Atherosclerotic heart disease of [place] coronary artery with other forms of angina pectoris, N18.30 - Chronic kidney disease, stage 3 unspecified Lipid Panel 3 Months E03.9 - Hypothyroidism, unspecified, E11.22 - Type 2 diabetes mellitus with diabetic chronic kidney disease, E11.43 - Type 2 diabetes mellitus with diabetic autonomic (poly)neuropathy, I25.118 - Atherosclerotic heart disease of [place] coronary artery with other forms of angina pectoris, N18.30 - Chronic kidney disease, stage 3 unspecified
[2024-07-04 10:32] VITALS: BP 134/58; PULSE 61; RESP 14; O2SAT 94; BMI 34.9
== END 2024-07-04 10:56 | disposition home or self-care (01) ==
LOC: HO.HMCFM 10:10
PROVIDERS: PCP Internal Medicine; Visit Provider Internal Medicine
DX: E11.22 Type 2 diabetes mellitus with diabetic chronic kidney disease (principal); E11.43 Type 2 diabetes mellitus with diabetic autonomic (poly)neuropathy; N18.30 Chronic kidney disease, stage 3 unspecified

== ENCOUNTER → 2024-07-04 10:10 | Outpatient (BNVA) | payer BC, SELFPAY | PROVIDERS: PCP Internal Medicine; Visit Provider Internal Medicine ==

== ENCOUNTER 2024-10-06 10:29 | Outpatient (REF) | payer BC, SELFPAY ==
[2024-10-06 13:57] LABS: MANUAL DIFF FLAG NO
[2024-10-06 14:03] LABS: Hematocrit 34.9 % (42.0-52.0); Hemoglobin 11.4 g/dl (14.0-18.0); Imm Gran Abs Auto 0.03 X10*3/uL (0.00-0.03); Imm Gran Pct Auto 0.5 % (0.0-0.4); Lymphocytes Absolute Auto 1.2 X10*3/uL (1.2-4.9); Mean Corpuscular HGB Conc 32.7 g/dl (31.0-36.0); Mean Corpuscular Hemoglobin 30.7 pg (27.0-33.0); Mean Corpuscular Volume 94.1 fL (80.0-98.0); NRBC Abs Auto 0.000 X10*3/uL (0.0-0.012); NRBC Pct Auto 0.0 /100WBC (0.0-0.2); Platelet Count 233 X10*3/uL (160-400); Red Blood Count 3.71 X10*6/uL (4.60-5.80); White Blood Count 5.8 X10*3/uL (4.8-10.8)
[2024-10-06 14:09] LABS: Hemoglobin A1C 121.2686 umol/L; Total Hemoglobin (HGBA1C) 3026.4647 umol/L
[2024-10-06 14:22] LABS: Alanine Aminotransferase 37 U/L (0-40); Albumin Level 4.3 g/dL (3.5-5.0); Alkaline Phosphatase 53 U/L (39-117); Anion Gap 12 (12-20); Aspartate Amino Transferase 34 U/L (5-37); Blood Urea Nitrogen 31 mg/dL (9-16); Calcium 9.3 mg/dL (8.4-10.2); Carbon Dioxide 25 mmol/L (22-29); Chloride 107 mmol/L (96-108); Cholesterol 92 mg/dL (<200); Estimated Glomerular Filt Rate 59; HDL Cholesterol 34 mg/dL (>40); Potassium 4.2 mmol/L (3.3-5.1); Sodium 140 mmol/L (135-145); Total Protein 7.0 g/dL (6.5-8.0); Triglycerides 60 mg/dL (<150)
== END 2024-10-06 10:30 | disposition home or self-care (01) ==
LOC: HO.WFDLDS 10:29
PROVIDERS: Visit Provider Internal Medicine
DX: E11.22 Type 2 diabetes mellitus with diabetic chronic kidney disease (principal); N18.30 Chronic kidney disease, stage 3 unspecified; E03.9 Hypothyroidism, unspecified; E11.43 Type 2 diabetes mellitus with diabetic autonomic (poly)neuropathy; I25.118 Atherosclerotic heart disease of native coronary artery with other forms of angina pectoris
CPT/HCPCS: 36415; 80053; 80061; 83036; 85025

== ENCOUNTER 2024-10-10 10:12 | Outpatient (AMB) | payer BC, SELFPAY ==
--- NOTE | 2024-10-10 10:19 | A.OFFPC_ITS ---
Vital Signs 10/10/24 10:25 Height 6 ft 1.23 in Weight 269 lb 8 oz BMI 35.3 BP 134/62 Blood Pressure Location Lt brachial Position Sitting Respiration 14 Pulse 54 Pulse Source Pulse Oximeter Temp 97.5 F Temp Source Oral Pulse Oximetry (%) 96 Oxygen Delivery Method Room Air Intake Visit Reasons: 3 Months Intake Note: Three month follow up. 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 Allergies exenatide (From [employer]) Adverse Reaction (Intermediate, Verified 10/10/24 10:21) Vomiting Medication List - Last Reconciled 10/10/24 by Joelle Bowling MD amlodipine 5 mg PO DAILY atorvastatin 80 mg PO DAILY chlorthalidone 12.5 mg (1/2 x 25 mg) PO QAM clopidogrel 75 mg PO DAILY hydralazine 25 mg PO QID levothyroxine (Synthroid) 75 mcg PO DAILY losartan 100 mg PO DAILY metformin 1,000 mg (2 x 500 mg) PO BID nitroglycerin 0.4 mg sublingual Q5M PRN MDD 2 tab oxycodone 5 mg PO QID PRN 7 days pioglitazone 30 mg PO DAILY sertraline 25 mg PO DAILY tamsulosin 0.8 mg (2 x 0.4 mg) PO DAILY Tobacco use date assessed: 07/04/24 Fall risk assessment: 2 + Falls in past year Last assessed Fall Risk: 10/10/24 Dental Screening Dental Screen Date: 10/10/24 Did you have a dental visit in the last 12 months?: Yes Did you have a dental problem in the last 6 months where you did not have access to dental care?: No Was dental information given to patient?: Patient has dentist HPI HPI Comments History of Present Illness Details The patient is a 74 year old male with a past medical history of RICARDO on cpap, CAD s/p PCI 2006, HFPEF, hypertension, hyperlipidemia, type 2 diabetes, obesity presenting for follow up of breathing issues Endocrine-type 2 diabetes. On metformin & actos. Off insulin. Recent A1C 5.8% from 6.0%. Denies hypoglycemia CAD, CKD stage 3. Eye exam UTD Dr Morales. Intolerant GLP. Hypothyroid-stable on levothyroxine CV: Follows with cardiology, Dr Perkins. On amlodipine, losartan, ASA, chlorthalidone, hydralazine, metoprolol and plavix. s/p PCI 2007, [place] post procedure. NTG prn-about 2x/year. Chronic NELSON, stable. Denies chest pain, palpitations. Echo 12/2020 mild dilation ascending aorta grade 1 diastolic dysfunction EF 55-60%. Lightheadedness resolved with change to 5mg amlodipine (decreased from 10mg) Heme/Onc: Mild anemia. cologuard (-). Has refused colonoscopy. Chronic post prandial nausea. On oral B12. MSK: Chroinc low back pain-stable. Stopping him from doing exercise. GI: Hepatic steatosis: CT abd/pelvis 2019 hepatic steatosis Eye exam 10/2023-no retinopathy. Will likely have an upcoming cataract surgery ROS see HPI PHYSICAL EXAM: GENERAL: Alert and oriented x 3. NAD EYES: EOMI. Anicteric. HENT: Moist mucous membranes. No scleral icterus. No cervical lymphadenopathy. LUNGS: Clear to auscultation bilaterally. CARDIOVASCULAR: Regular rate and rhythm. No murmur. No JVD. ABDOMEN: Soft, non-tender +bs EXTREMITIES: No edema. Non-tender. SKIN: No rashes or lesions. Warm. NEUROLOGIC: No focal neurological deficits. CN II-XII grossly intact PSYCHIATRIC: Cooperative. Appropriate mood and affect [facility] Medical History (Updated 10/10/24 @ 10:55 by Joelle Bowling MD) Hernia Severe obesity (BMI 35.0-35.9 with comorbidity) Seasonal allergies Pain in thoracic spine Obstructive sleep apnea syndrome Neoplasm of skin Mild anemia Loss of hearing Cognitive impairment Hypothyroidism Hyperlipidemia Hx of myocardial infarction Hepatic steatosis Diabetes mellitus Chronic kidney disease, stage 3 Chest pain Cervical spondylarthritis Benign prostatic hyperplasia Benign essential HTN Surgical History Hx of appendectomy H/O angioplasty H/O eye surgery Social History Housing: House Alcohol intake: former Comment: hasnt drank in 37 years Patient Tobacco Use Status: Former Tobacco user Cigarette Packs Per Day: 2 Years Smoked: 25 e-Cigarette/Vaping Use: Never Used Second Hand Smoke Exposure: Yes (past) service: Yes Current occupational status: retired Cognitive needs: No Hearing needs: No Vision needs: Yes (glasses) Questionnaire Thrive Questionnaire Date Thrive assessed: 03/14/24 I am a: Patient What is your living situation today?: I have a steady place to live Within the past 12 months, did the food you bought not last and you didn't have the money to get more?: Never true Within the past 12 months, did you worry whether your food would run out before you got money to buy more?: Never true Do you have trouble paying for medicines?: No Do you have trouble getting transportation to medical appointments?: No Do you have trouble paying your heating and electricity bill?: No Do you have trouble taking care of your child, family member or friend?: No Do you have trouble with day-to-day activities such as bathing, preparing meals, shopping, managing finances, etc.?: No Are you currently unemployed and looking for a job?: No Are you interested in more education?: No Please select the resources that you would like help with: None Currently or been in a relationship where the following occur: No concerns reported THRIVE Score: 0 AUDIT C Alcohol Use Questionnaire (AUDIT-C) 1. How often do you have a drink containing alcohol?: Never 3. How often do you have six or more drinks on one occasion?: Never Total Score: 0 SHANNAN-7 AMB Questionnaire SHANNAN-7 Date SHANNAN - 7 assessed: 03/14/24 Source: Developed by Drs. Roosevelt Hood, Tracee Calle, Stephon Kennedy and colleagues, with an educational rachel from [employer]. Physical exam (Primary Care) Vital Signs: Last Vital Signs Temp 97.5 F 10/10/24 10:25 Pulse 54 10/10/24 10:25 Resp 14 10/10/24 10:25 BP 134/62 10/10/24 10:25 Pulse Ox 96 10/10/24 10:25 Oxygen Delivery Method Room Air 10/10/24 10:25 BMI result Body Mass Index 35.3 Tobacco/Smoking Status: Tobacco use Status Tobacco use date assessed 07/04/24 10/10/24 10:20 Patient Tobacco Use Status Former Tobacco user 10/10/24 10:30 e-Cigarette/Vaping Use Never Used 10/10/24 10:30 Thrive Assessment: Date of Thrive Assessment Date Thrive assessed 03/14/24 10/10/24 10:34 Currently or been in a relationship where the following occur: No concerns reported Coding Level of Care Code Est Pt Level 4 (69340) Complex EM visit Add On G2211 Diagnoses Type 2 diabetes mellitus with stage 3 chronic kidney disease, without long-term current use of insulin, unspecified whether stage 3a or 3b CKD E11.22; N18.30 Diabetes mellitus retirement insulin use: without retirement use Diabetes mellitus complication status: with kidney complications Diabetes mellitus complication detail: with chronic kidney disease Chronic kidney disease stage: stage 3 (moderate) Chronic kidney disease stage 3 subtype: unspecified whether 3a or 3b Type 2 diabetes mellitus with diabetic autonomic neuropathy, without long-term current use of insulin E11.43 Diabetes mellitus type: type 2 Diabetes mellitus retirement insulin use: without retirement use Diabetes mellitus complication status: with neurologic complications Diabetes mellitus complication detail: with autonomic neuropathy Stage 3 chronic kidney disease, unspecified whether stage 3a or 3b CKD N18.30 Chronic kidney disease stage 3 subtype: unspecified whether 3a or 3b Severe obesity (BMI 35.0-35.9 with comorbidity) E66.01; Z68.35 Assessment & Plan Assessment & Plan (1) Type 2 diabetes mellitus: Code(s): E11.9 - Type 2 diabetes mellitus without complications Category: Medical Qualifiers: Diabetes mellitus retirement insulin use: without retirement use Diabetes mellitus complication status: with kidney complications Diabetes mellitus complication detail: with chronic kidney disease Chronic kidney disease stage: stage 3 (moderate) Chronic kidney disease stage 3 subtype: unspecified whether 3a or 3b Qualified Code(s): E11.22 - Type 2 diabetes mellitus with diabetic chronic kidney disease; N18.30 - Chronic kidney disease, stage 3 unspecified (2) Diabetes mellitus: Code(s): E11.9 - Type 2 diabetes mellitus without complications Category: Medical Qualifiers: Diabetes mellitus type: type 2 Diabetes mellitus petroleum terminal plant operator insulin use: without petroleum terminal plant operator use Diabetes mellitus complication status: with neurologic complications Diabetes mellitus complication detail: with autonomic neuropathy Qualified Code(s): E11.43 - Type 2 diabetes mellitus with diabetic autonomic (poly)neuropathy (3) Chronic kidney disease, stage 3: Code(s): N18.30 - Chronic kidney disease, stage 3 unspecified Category: Medical Qualifiers: Chronic kidney disease stage 3 subtype: unspecified whether 3a or 3b Qualified Code(s): N18.30 - Chronic kidney disease, stage 3 unspecified (4) Severe obesity (BMI 35.0-35.9 with comorbidity): Code(s): E66.01 - Morbid (severe) obesity due to excess calories; Z68.35 - Body mass index [BMI] 35.0-35.9, adult Category: Medical Plan DM-well controlled on current medications. obese-continued weight loss efforts CAD-Blood pressure is well controlled. Check cologuard date Orders: Orders Hemoglobin A1c 4 Months E03.9 - Hypothyroidism, unspecified, E11.22 - Type 2 diabetes mellitus with diabetic chronic kidney disease, I25.118 - Atherosclerotic heart disease of [place] coronary artery with other forms of angina pectoris, N18.30 - Chronic kidney disease, stage 3 unspecified Lipid Panel 4 Months E03.9 - Hypothyroidism, unspecified, E11.22 - Type 2 diabetes mellitus with diabetic chronic kidney disease, I25.118 - Atherosclerotic heart disease of [place] coronary artery with other forms of angina pectoris, N18.30 - Chronic kidney disease, stage 3 unspecified Prostate Specific Antigen 4 Months E03.9 - Hypothyroidism, unspecified, E11.22 - Type 2 diabetes mellitus with diabetic chronic kidney disease, I25.118 - Atherosclerotic heart disease of [place] coronary artery with other forms of angina pectoris, N18.30 - Chronic kidney disease, stage 3 unspecified Comprehensive Met. Panel 4 Months E03.9 - Hypothyroidism, unspecified, E11.22 - Type 2 diabetes mellitus with diabetic chronic kidney disease, I25.118 - Atherosclerotic heart disease of [place] coronary artery with other forms of angina pectoris, N18.30 - Chronic kidney disease, stage 3 unspecified TSH reflex Free T4 4 Months E03.9 - Hypothyroidism, unspecified, E11.22 - Type 2 diabetes mellitus with diabetic chronic kidney disease, I25.118 - Atherosclerotic heart disease of [place] coronary artery with other forms of angina pectoris, N18.30 - Chronic kidney disease, stage 3 unspecified Medications: Changed From amlodipine 10 mg PO DAILY 90 tabs 3RF To amlodipine 5 mg PO DAILY
[2024-10-10 10:25] VITALS: BP 134/62; PULSE 54; RESP 14; TEMP 36.4; O2SAT 96; BMI 35.3
== END 2024-10-10 10:49 | disposition home or self-care (01) ==
LOC: HO.HMCFM 10:12
PROVIDERS: PCP Internal Medicine; Visit Provider Internal Medicine
DX: E11.22 Type 2 diabetes mellitus with diabetic chronic kidney disease (principal); N18.30 Chronic kidney disease, stage 3 unspecified; E11.43 Type 2 diabetes mellitus with diabetic autonomic (poly)neuropathy; E66.01 Morbid (severe) obesity due to excess calories; Z68.35 Body mass index [BMI] 35.0-35.9, adult

== ENCOUNTER 2024-11-01 11:25 | Outpatient (AMB) | payer BC, SELFPAY ==
--- NOTE | 2024-11-01 11:29 | A.OFFPC_ITS ---
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8 mg (2 x 0.4 mg) PO DAILY Tobacco use date assessed: 11/01/24 Fall risk assessment: 2 + Falls in past year Last assessed Fall Risk: 11/01/24 Dental Screening Dental Screen Date: 11/01/24 Did you have a dental visit in the last 12 months?: Yes Did you have a dental problem in the last 6 months where you did not have access to dental care?: No Was dental information given to patient?: Patient has dentist HPI HPI Comments History of Present Illness Details The patient is a 74 year old male with a past medical history of RICARDO on cpap, CAD s/p PCI 2006, HFPEF, hypertension, hyperlipidemia, type 2 diabetes, obesity, Here today for preoperative clearance. Endocrine-type 2 diabetes. On metformin & actos. Off insulin. Denies hypoglycemia CAD, CKD stage 3. Eye exam UTD Dr Morales. Intolerant GLP. Hypothyroid-stable on levothyroxine CV: Follows with cardiology, Dr Perkins. On amlodipine, losartan, ASA, chlort halidone, hydralazine, metoprolol and plavix. s/p PCI 2006, [place] post procedure. NTG prn-about 2x/year. Chronic NELSON, stable. Denies chest pain, palpitations. Echo 12/2020 mild dilation ascending aorta grade 1 diastolic dysfunction EF 55- 60%. Lightheadedness resolved with change to 5mg amlodipine (decreased from 10mg) Heme/Onc: Mild anemia. cologuard (-). Has refused colonoscopy. Chronic post prandial nausea. On oral B12. MSK: Chroinc low back pain-stable. Stopping him from doing exercise. GI: Hepatic steatosis: CT abd/pelvis 2019 hepatic steatosis Surgery Type: Cataract extraction, R Anesthesia Type: MAC Surgeon: Dr Morales Date: 11/06/24 Any past surgical procedures: Y Any complications from anesthesia or in post-op period: N ASA or NSAID Use: on Baby ASA, on Plavix. Ok to cont Current smoker: N Alcohol use: N Drug use: N METs: > 4 climb flight of stairs, golf, walk, yardwork Medical history: Asthma N COPD N Obesity BMI 35.8 Diabetes Y ID < 6 weeks, unstable angina, CHF, severe valve disease: CHF Testing EKG done today in office, NSR Labs as below - Stable ROS: Denies fever, chills, sob, chest pain. Exam: Awake alert NAD RRR LS CTAB Trace edema BLE Plan: Patient is medically cleared to proceed with surgery. Total time spent caring for the patient today was 30 minutes. This includes time spent before the visit reviewing the chart, time spent during the visit, and time spent after the visit on documentation, reviewing laboratory results, diagnostic imaging, medications, performing a medically necessary evaluation, counseling on diagnoses, care coordination, ordering appropriate tests, ordering appropriate medications, review of tests performed by other providers, reporting test results with the patient, communication with other healthcare providers. [facility] Medical History (Updated 11/01/24 @ 12:15 by CARLOS Mckenna-) Benign essential HTN Benign prostatic hyperplasia Cervical spondylarthritis Chest pain Chronic kidney disease, stage 3 Cognitive impairment Diabetes mellitus Hepatic steatosis Hernia Hx of myocardial infarction Hyperlipidemia Hypothyroidism Loss of hearing Mild anemia Neoplasm of skin Obstructive sleep apnea syndrome Pain in thoracic spine Seasonal allergies Severe obesity (BMI 35.0-35.9 with comorbidity) Surgical History H/O angioplasty H/O eye surgery Hx of appendectomy Social History Housing: House Alcohol intake: former Comment: hasnt drank in 37 years Patient Tobacco Use Status: Former Tobacco user Cigarette Packs Per Day: 2 Years Smoked: 25 Packs Per Year: 50 e-Cigarette/Vaping Use: Never Used Second Hand Smoke Exposure: Yes (past) service: Yes Current occupational status: retired Cognitive needs: No Hearing needs: No Vision needs: Yes (glasses) Questionnaire PHQ-9 Over the last 2 weeks, how often have you been bothered by any of the following problems? 1. Little interest or pleasure in doing things: not at all 2. Feeling down, depressed, or hopeless: not at all 3. Trouble falling or staying asleep, or sleeping too much: not at all 4. Feeling tired or having little energy: not at all 5. Poor appetite or overeating: not at all 6. Feeling bad about yourself - or that you are a failure or have let yourself or your family down: not at all 7. Trouble concentrating on things, such as reading the newspaper or watching television: not at all 8. Moving or speaking so slowly that other people could have noticed. Or the opposite - being so fidgety or restless that you have been moving around a lot more than usual: not at all 9. Thoughts that you would be better off or of hurting yourself in some way: not at all Total score: 0 Depression Screening Interpretation: Negative Depression Screening Done: Yes 76938 - PHQ-9 Billing: Yes Source: Developed by Drs. Roosevelt Hood, Tracee Calle, Stephon Kennedy and colleagues, with an educational rachel from [employer]. Thrive Questionnaire Date Thrive assessed: 11/01/24 I am a: Patient What is your living situation today?: I have a steady place to live Within the past 12 months, did the food you bought not last and you didn't have the money to get more?: Never true Within the past 12 months, did you worry whether your food would run out before you got money to buy more?: Never true Do you have trouble paying for medicines?: No Do you have trouble getting transportation to medical appointments?: No Do you have trouble paying your heating and electricity bill?: No Do you have trouble taking care of your child, family member or friend?: No Do you have trouble with day-to-day activities such as bathing, preparing meals, shopping, managing finances, etc.?: No Are you currently unemployed and looking for a job?: No Are you interested in more education?: No Please select the resources that you would like help with: None Currently or been in a relationship where the following occur: No concerns reported THRIVE Score: 0 SHANNAN-7 AMB Questionnaire SHANNAN-7 Date SHANNAN - 7 assessed: 11/01/24 Feeling nervous, anxious, or on edge: 0 = Not at all Not being able to stop or control worryin = Not at all Worrying too much about different things: 0 = Not at all Trouble relaxin = Not at all Being so restless that it is hard to sit still: 0 = Not at all Becoming easily annoyed or irritable: 0 = Not at all Feeling afraid as if something awful might happen: 0 = Not at all Total SHANNAN-7 score (0-4 normal; 5-9 mild; 10-14 moderate; 15-21 severe): 0 Source: Developed by Drs. Roosevelt Hood, Tracee Calle, Stephon Kennedy and colleagues, with an educational rachel from [employer]. SHANNAN-7 Assessment Billing SHANNAN-7 Assessment Tool: SHANNAN-7 Assessment 18748 Physical exam (Primary Care) Vital Signs: Last Vital Signs Temp 97.3 F 11/01/24 11:34 Pulse 61 11/01/24 11:34 Resp 12 11/01/24 11:34 BP 128/68 11/01/24 12:06 Pulse Ox 99 11/01/24 11:34 Oxygen Delivery Method Room Air 11/01/24 11:34 BMI result Body Mass Index 35.8 Tobacco/Smoking Status: Tobacco use Status Tobacco use date assessed 11/01/24 11/01/24 11:31 Patient Tobacco Use Status Former Tobacco user 11/01/24 11:31 e-Cigarette/Vaping Use Never Used 11/01/24 11:31 PHQ-9: PHQ-9 Score PHQ-9: Total score 0 11/01/24 11:53 Depression Screening Interpretation: Negative Thrive Assessment: Date of Thrive Assessment Date Thrive assessed 11/01/24 11/01/24 11:49 Currently or been in a relationship where the following occur: No concerns reported Office Procedures EKG 40453-[id number], Complete Results Reviewed Results Reviewed: RUN: 11/01/24 1211 PAGE 1 [facility] [address] [place] [id number] Collar Worker: Jacoby Lawrence M.D. Specimen Inquiry Name: Korey Huber Age/Sex: 74/M : 1950 Unit#: [id number] Attend Dr: Joelle Bowling MD Re10/06/24 Status: DEP REF Location: [facility] Disch: SPEC : [id number] MERARY: 10/06/24 STATUS: COMP REQ : [id number] RECD: 10/06/24 [facility] DR: Joelle Bowling MD COMP: 10/06/24 ENTERED: 10/06/24 [facility] [address]: ORDERED: CBC Auto Diff Test Result Flag Reference WBC 5.8 4.8-10.8 X10*3/uL RBC 3.71 L 4.60-5.80 X10*6/uL HGB 11.4 L 14.0-18.0 g/dl HCT 34.9 L 42.0-52.0 % MCV 94.1 80.0-98.0 fL MCH 30.7 27.0-33.0 pg MCHC 32.7 31.0-36.0 g/dl RDW 13.3 11.0-16.0 % PLT 233 160-400 X10*3/uL MPV 10.7 9.4-12.4 fL Neut Pct Auto 66.4 45-73 % ImGran Pct Auto 0.5 H 0.0-0.4 % Lymp Pct Auto 20.1 20-40 % Jenkins Pct Auto 8.6 2-11 % Eos Pct Auto 3.9 0-4 % Baso Pct Auto 0.5 0-2 % NRBC Pct Auto 0.0 0.0-0.2 /100WBC ANC Neut Abs # 3.9 2.0-8.3 x10*3/uL ImGran Abs Auto 0.03 0.00-0.03 X10*3/uL Lymph Abs Auto 1.2 1.2-4.9 X10*3/uL Jenkins Abs Auto 0.5 0.1-1.2 X10*3/uL Eos Abs Auto 0.2 0.0-0.4 X10*3/uL Baso Abs Auto 0.0 0.0-0.2 X10*3/uL NRBC Abs Auto 0.000 0.0-0.012 X10*3/uL RUN: 11/01/24 1211 PAGE 1 [facility] [address] [place] [id number] Collar Worker: Jacoby Lawrence M.D. Specimen Inquiry Name: Korey Huber Age/Sex: 74/M : 1950 Unit#: [id number] Attend Dr: Joelle Bowling MD Re10/06/24 Status: DEP REF Location: [id number] Disch: SPEC : [id number] MERARY: 10/06/24 STATUS: COMP REQ : [id number] RECD: 10/06/[address] [facility] [address]: Joelle Bowling MD COMP: 10/06/24 ENTERED: 10/06/[address]: ORDERED: CMP, Lipid Panel Test Result Flag Reference Sodium 140 135-145 mmol/L Potassium 4.2 3.3-5.1 mmol/L CL 107 96-108 mmol/L CO2 25 22-29 mmol/L Gap 12 12-20 BUN 31 H 9-16 mg/dL Creat 1.19 0.5-1.4 mg/dL eGFR 59 Chronic Kidney Disease: Estimated GFR < 60 mL/min/1.73m2 Severe Kidney Disease: Estimated GFR < 15 mL/min/1.73m2 Glucose, Random 118 H 60-115 mg/dL CA 9.3 8.4-10.2 mg/dL Total Bili 0.4 0.0-1.0 mg/dL AST (GOT) 34 5-37 U/L ALT (GPT) 37 0-40 U/L Protein, Total 7.0 6.5-8.0 g/dL Alb 4.3 3.5-5.0 g/dL Triglyceride 60 <150 mg/dL Desirable Triglyceride: less than 150 mg/dL Borderline High Triglyceride 150-199 mg/dL High Triglyceride: 200-499 mg/dL Very High Triglyceride: greater than or equal to 5OO mg/dL Cholesterol 92 <200 mg/dL Desirable Cholesterol: less than 200 mg/dL Borderline High Cholesterol: 200-239 mg/dL High Cholesterol: greater than 239 mg/dL LDL Calculated 46 <100 mg/dL Desirable LDL: less than 100 mg/dL Near Optimal/Above Optimal LDL: 110-129 mg/dL Borderline High LDL: 130-159 mg/dL High LDL: 160-189 mg/dL Very High LDL: greater than or equal to 190 mg/dL HDL 34 L >40 mg/dL Desirable HDL: greater than 40 mg/dL Note: This HDL assay may give artificially low results in patients with liver disease. Alk Phos 53 39-117 U/L END OF REPORT Coding Level of Care Code Est Pt Level 4 (10781) Complex EM visit Add On G2211 Diagnoses Pre-op exam Z01.818 Cataract of right eye, unspecified cataract type H26.9 Cataract type: unspecified Laterality: right CPT Codes EKG - CPT: 77234-[id number], Complete ([id number]) Additional Codes SHANNAN-7 Assessment Billing - SHANNAN-7 Assessment Tool: SHANNAN-7 Assessment 03979 ([id number]) PHQ-9 - 51823 - PHQ-9 Billing: Yes ([id number]) Assessment & Plan Assessment & Plan (1) Pre-op exam: Comment: Pt is medically cleared to proceed w/ surgery Code(s): Z01.818 - Encounter for other preprocedural examination Category: Medical (2) Cataract: Code(s): H26.9 - Unspecified cataract Category: Medical Qualifiers: Cataract type: unspecified Laterality: right Qualified Code(s): H26.9 - Unspecified cataract Plan .
[2024-11-01 11:34] VITALS: BP 142/72; PULSE 61; RESP 12; TEMP 36.3; O2SAT 99; BMI 35.8
[2024-11-01 12:06] VITALS: BP 128/68
--- OUTSIDE RECORDS SUMMARY | 2024-11-01 12:23 | XMS_ITS ---
Author Name [facility] Organization Unknown Care Team Organization Name Specialty Phone Email Start Date End Da rebecca [facility] Termed, PROVIDER Primary Care 01/27/202210/20
== END 2024-11-01 12:11 | disposition home or self-care (01) ==
LOC: HO.HMCFM 11:26
PROVIDERS: PCP Internal Medicine; Visit Provider Nurse Practitioner Family
DX: Z01.818 Encounter for other preprocedural examination (principal); H26.9 Unspecified cataract

== ENCOUNTER → 2024-11-01 11:25 | Outpatient (BNVA) | payer BC, SELFPAY | PROVIDERS: PCP Internal Medicine; Visit Provider Nurse Practitioner Family | DX: Z01.818 Encounter for other preprocedural examination (principal); H26.9 Unspecified cataract; G47.33 Obstructive sleep apnea (adult) (pediatric); I10 Essential (primary) hypertension; E78.5 Hyperlipidemia, unspecified; E11.9 Type 2 diabetes mellitus without complications; E66.9 Obesity, unspecified; D64.9 Anemia, unspecified; Z79.84 Long term (current) use of oral hypoglycemic drugs; Z99.89 Dependence on other enabling machines and devices | CPT/HCPCS: 93005; 96127 ==

== ENCOUNTER 2024-11-28 14:34 | Outpatient (AMB) | payer BC, SELFPAY ==
--- NOTE | 2024-11-28 14:57 | A.OFFPC_ITS ---
Intake Visit Reasons: Annual PE Intake Note: Physical Pneumatic Jacketer Required: No Allergies exenatide (From [employer]) Adverse Reaction (Intermediate, Verified 11/28/24 14:57) Vomiting Tobacco use date assessed: 11/28/24 Fall risk assessment: 2 + Falls in past year Last assessed Fall Risk: 11/28/24 Dental Screening Dental Screen Date: 11/28/24 Did you have a dental visit in the last 12 months?: Yes Was dental information given to patient?: Patient has dentist HPI HPI Comments History of Present Illness Details The patient is a 74 year old male with a past medical history of RICARDO on cpap, CAD s/p PCI 2006, HFPEF, hypertension, hyperlipidemia, type 2 diabetes, obesity presenting for CPE Endocrine-type 2 diabetes. On metformin & actos. Off insulin. Recent A1C 5.8% from 6.0%. Denies hypoglycemia CAD, CKD stage 3. Eye exam UTD Dr Morales. Intolerant GLP. Hypothyroid-stable on levothyroxine CV: Follows with cardiology, Dr Perkins. On amlodipine, losartan, ASA, chlorthalidone, hydralazine, metoprolol and plavix. s/p PCI 2006, [place] post procedure. NTG prn-about 2x/year. Chronic NELSON, stable. Denies chest pain, palpitations. Echo 12/2020 mild dilation ascending aorta grade 1 diastolic dysfunction EF 55-60%. Lightheadedness resolved with change to 5mg amlodipine (decreased from 10mg) Heme/Onc: Mild anemia. cologuard (-). Has refused colonoscopy. Chronic post prandial nausea. On oral B12. MSK: Chronic low back pain-stable. Stopping him from doing exercise. GI: Hepatic steatosis: CT abd/pelvis 2019 hepatic steatosis Eye exam 10/2023-no retinopathy. Recent cataract surgery. Doing well. PSA 02/2024 WNL. Sees urology 1x/year Following with dermatology-[place] 11/24/2024-COVID, FLU received. ROS see HPI PHYSICAL EXAM: GENERAL: Alert and oriented x 3. NAD EYES: EOMI. Anicteric. HENT: Moist mucous membranes. No scleral icterus. No cervical lymphadenopathy. LUNGS: Clear to auscultation bilaterally. CARDIOVASCULAR: Regular rate and rhythm. No murmur. No JVD. ABDOMEN: Soft, non-tender +bs EXTREMITIES: No edema. Non-tender. SKIN: No rashes or lesions. Warm. NEUROLOGIC: No focal neurological deficits. CN II-XII grossly intact PSYCHIATRIC: Cooperative. Appropriate mood and affect [facility] Medical History Hernia Severe obesity (BMI 35.0-35.9 with comorbidity) Seasonal allergies Pain in thoracic spine Obstructive sleep apnea syndrome Neoplasm of skin Mild anemia Loss of hearing Cognitive impairment Hypothyroidism Hyperlipidemia Hx of myocardial infarction Hepatic steatosis Diabetes mellitus Chronic kidney disease, stage 3 Chest pain Cervical spondylarthritis Benign prostatic hyperplasia Benign essential HTN Surgical History Hx of appendectomy H/O angioplasty H/O eye surgery Social History Housing: House Alcohol intake: former Comment: hasnt drank in 37 years Patient Tobacco Use Status: Former Tobacco user Cigarette Packs Per Day: 2 Years Smoked: 25 e-Cigarette/Vaping Use: Never Used Second Hand Smoke Exposure: Yes (past) service: Yes Current occupational status: retired Cognitive needs: No Hearing needs: No Vision needs: Yes (glasses) Questionnaire Thrive Questionnaire Date Thrive assessed: 07/04/24 I am a: Patient What is your living situation today?: I have a steady place to live Within the past 12 months, did the food you bought not last and you didn't have the money to get more?: Never true Within the past 12 months, did you worry whether your food would run out before you got money to buy more?: Never true Do you have trouble paying for medicines?: No Do you have trouble getting transportation to medical appointments?: No Do you have trouble paying your heating and electricity bill?: No Do you have trouble taking care of your child, family member or friend?: No Do you have trouble with day-to-day activities such as bathing, preparing meals, shopping, managing finances, etc.?: No Are you currently unemployed and looking for a job?: No Are you interested in more education?: No Please select the resources that you would like help with: None Currently or been in a relationship where the following occur: No concerns reported THRIVE Score: 0 SHANNAN-7 AMB Questionnaire SHANNAN-7 Date SHANNAN - 7 assessed: 11/01/24 Source: Developed by Drs. Roosevelt Hood, Tracee Calle, Stephon Kennedy and colleagues, with an educational rachel from [email or web address]. Physical exam (Primary Care) Tobacco/Smoking Status: Tobacco use Status Tobacco use date assessed 11/28/24 11/28/24 14:58 Patient Tobacco Use Status Former Tobacco user 11/28/24 14:58 e-Cigarette/Vaping Use Never Used 11/28/24 14:58 Thrive Assessment: Date of Thrive Assessment Date Thrive assessed 07/04/24 11/28/24 14:58 Currently or been in a relationship where the following occur: No concerns reported Coding Level of Care Code Est Pt Prev Care >65y(11629) Diagnoses Physical exam Z00.00 Type 2 diabetes mellitus with diabetic autonomic neuropathy, without long-term current use of insulin E11.43 Diabetes mellitus type: type 2 Diabetes mellitus halfway insulin use: without halfway use Diabetes mellitus complication status: with neurologic complications Diabetes mellitus complication detail: with autonomic neuropathy Stage 3 chronic kidney disease, unspecified whether stage 3a or 3b CKD N18.30 Chronic kidney disease stage 3 subtype: unspecified whether 3a or 3b Assessment & Plan Assessment & Plan (1) Physical exam: Code(s): Z00.00 - Encounter for general adult medical examination without abnormal findings (2) Diabetes mellitus: Code(s): E11.9 - Type 2 diabetes mellitus without complications Category: Medical Qualifiers: Diabetes mellitus type: type 2 Diabetes mellitus halfway insulin use: without halfway use Diabetes mellitus complication status: with neurologic complications Diabetes mellitus complication detail: with autonomic neuropathy Qualified Code(s): E11.43 - Type 2 diabetes mellitus with diabetic autonomic (poly)neuropathy (3) Chronic kidney disease, stage 3: Code(s): N18.30 - Chronic kidney disease, stage 3 unspecified Category: Medical Qualifiers: Chronic kidney disease stage 3 subtype: unspecified whether 3a or 3b Qualified Code(s): N18.30 - Chronic kidney disease, stage 3 unspecified Plan Physical exam Interval history reviewed preventive measures for age discussed. Labs prior to february appt Declines colonoscopy Recent flu & covid vaccinations Orders: Referrals Cologuard Test Z12.11 - Encounter for screening for malignant neoplasm of colon, Z12.12 - Encounter for screening for malignant neoplasm of rectum
--- OUTSIDE RECORDS SUMMARY | 2024-11-28 17:06 | XMS_ITS | Clinical Summary ---
Author Organization [facility] [place] [address] Care Team Providers Care Right Of Way Man Name Role Phone Joelle Bowling MD Primary Care Provider Medications carvediloL (COREG) 12.5 mg tablet Take 1 tablet (12.5 mg total) by mouth 2 (two) times a day with meals. 180 each 1 5 11/03/19 26 Active carvediloL (COREG) 25 mg tablet Take 1 tablet (25 mg total) by mouth daily. 4 11/03/19 25 Discontinued Immunizations Name Administration Dates Next Due Moderna SARS-CoV-2 COVID-19, mRNA, LNP-S, preservative free 07/04/2021,01/10/2021,05/10/2020,2020 Surgical History Surgery Date Site/Laterality Comments APPENDECTOMY PROCEDURE: HISTORICAL APPENDECTOMY; COMMENT: 2nd grade TONSILLECTOMY PROCEDURE: HISTORICAL TONSILLECTOMY; COMMENT: AND ADENOIDECTOMY OTHER SURGICAL HISTORY 06/20 PROCEDURE: NUCLEAR STRESS TEST; COMMENT: normal COLONOSCOPY 07/23/2006 PROCEDURE: HISTORICAL COLONOSCOPY; COMMENT: Negative ANGIOPLASTY 10/26 PROCEDURE: HISTORICAL ANGIOPLASTY W/STENT; COMMENT: 1 stent FLEXIBLE SIGMOIDOSCOPY 08/2000 PROCEDURE: HISTORICAL FLEXIBLE SIGMOIDOSCOPY; COMMENT: normal COLONOSCOPY 09/08/2016 PROCEDURE: HISTORICAL COLONOSCOPY; COMMENT: 5 mm right colon polyp: Tubular adenoma. KNEE SURGERY UNK Bilateral PROCEDURE: HISTORICAL KNEE SURGERY; COMMENT: ARTHROSCOPY/ARTHROPLASTY x 2, Dr. Nahomi, R + L; and Tamir HERNIA REPAIR PROCEDURE: HISTORICAL HERNIA REPAIR/ING; COMMENT: 2nd grade Medical History Medical History Date Comments Essential hypertension, benign D X:Essential hypertension, benign Pure hypercholesterolemia DX:Pur e hypercholesterolemia Pain in thoracic spine 01/19/2006 DX:Pain i n thoracic spine; COMMENT: Retired from firefighting for right posterior rib fractures Dermatophytosis of nail 2004 DX:[place] tophytosis of nail Allergic rhinitis 08/02/2007 DX:Allergic rh initis Controlled type 2 diabetes m ellitus with peripheral circulatory disorder (CMS/HCC V24, CMS/HCC V28) 02/05/2014 DX:Controlled type 2 diabet es mellitus with peripheral circulatory disorder (HCC) Coronary atherosclerosis 11/10/2006 DX:[place] nary atherosclerosis; COMMENT: Stent placement 10/26 with intraprocedure small AR. Degenerative disc disease, cervical 10/26/2018 DX:Degenerative disc disease, cervical; COMMENT: CT 05/03/18 - most pronounced in C6/C7 Hypothyroidism 03/01/2014 DX:Hypothyroidis m RICARDO (obstructive sleep apnea) 05/16/2012 DX :RICARDO (obstructive sleep apnea); COMMENT: RDI 48 in 2008 [facility] Polysomnogram treatment study. Date 08/23/2018. Wt 275#; BMI 35; SE 53 % SM 53 %; spent 15 % of the study in REM. On CPAP @ 14; RDI 0 (AHI 0), Central apneas 0; Obstructive apneas 0; Mixed apneas 0; hypopneas 0; RERAs 0; and, average oxygen saturation was 92%. For the entire study, PLMs -17. Severe obesity (BMI 35.0-39. 9) with comorbidity (CMS/HCC V24, CMS/HCC V28) 05/21/2005 DX:Severe obesity (BMI 35.0- 39.9) with comorbidity (HCC) History of rib fracture DX:Histo ry of rib fracture; COMMENT: Chronic disability, 08/27/96 BPH without obstruction/lowe r urinary tract symptoms 05/21/2005 DX:BPH without obstruction/l ower urinary tract symptoms Family History Medical History Relation Name Comments Lung cancer Aunt Heart attack Father Other cancer Maternal Grandfather Unknown type Diabetes Mother AR Other: blood clot after prostate surgery Paternal Gran dfather Relation Name Status Comments Aunt Daughter 1 Alive healthy Daughter 2 Alive Healthy Father (Age 69) AR caused , DM Maternal Grandfather Cancer UK type Maternal Grandmother UK Mother (Age 84) bowel bloc kage, CABG, AR Paternal Grandfather Blood c lot after prostate surgery Paternal Grandmother UK, DM Sister Alive DOCUMENTATION SPECIALIST and knee pr oblems Social History Tobacco Use Types Packs/Day Years Used Date Smoking Tobacco: Former Cigarettes 2 26.8 0 1958 - 03/22/1985 Smokeless Tobacco: Never Alcohol Use Standard Drinks/Week Comments No 0 (1 standard drink = 0.6 oz pur e alcohol) Sex and Gender Information Value Date Recorded Sex Assigned at Male 04/20/2023 2:33 PM EST Legal Sex Male 1:34 PM EST Gender Identity Male 04/20/2023 2:33 PM EST Sexual Orientation Straight 04/20/2023 2: 33 PM EST Obstetrics History Last Filed Vital Signs Vital Sign Reading Time Taken Comments Blood Pressure 144/72 05/13/2023 8:54 AM EST Sit ting L Arm Pulse 61 05/13/2023 8:54 AM EST Temperature - - Respiratory Rate - - Oxygen Saturation 97% 07/11/2021 11:11 AM EDT RA Inhaled Oxygen Concentration - - Weight 132 kg (290 lb) 05/13/2023 8:54 AM EST Height 188 cm (6' 2 ) 05/13/2023 8:54 AM EST Body Mass Index 37.23 05/13/2023 8:54 AM EST Plan of Treatment Upcoming Encounters Date Type Department Care Team (Late st Contact Info) Description 12/20/2024 11:10 AM EDT Office Visit [facility] [address] [facility] [address] [place] [address] Earline Lauren NP [address] [place] [address] [place] [address] Health Maintenance Due Date Last Done Comments Diabetes: Annual GFR (Glomerular Filtration Rate) 1948 Diabetes: Annual Foot Exam 1958 Diabetes: Annual Retina Eye Exam 1958 Cholesterol Screening (Lipid Panel) 02/28/2022 Colorectal Cancer Screening: Colonoscopy 02/28/2022 Falls Risk Assessment 02/28/2022 Hepatitis C Screening 02/28/2022 Social Influencers of Health Screening 02/28/2022 Hypertension/CHF/CAD Annual BMP Blood Test 03/01/2022 Diabetes: Annual Urine Albumin-Creatinine Ratio (uACR) 03/06/2022 Diabetes: Blood Sugar Control Test (HGBA1C) 03/06/2022 RSV Immunization Adult Patients (1 - 1-dose 75+ series) 05/24/2023 Depression Screening 03/22/2024 COVID-19 Vaccine ( season) 2024 07/04/2021, 01/10/2021, 05/10/2020, Additional history exists Influenza Vaccine (#1) 2024 , 12/21/2019, 11/30/2017, Additional history exists DTaP,Tdap,and Td Vaccines (4 - Td or Tdap) 03/09/2027 03/09/2017, 02/01/2007, 04/25/1999 Pneumococcal Vaccine: 50+ Years Completed 08/14/2014, 08/30/2013, 02/01/2007 Zoster Vaccines Completed 01/16/2019, 10/21, 01/22/2009 HIB Vaccines Aged Out No longer eligi ble based on patient's age to complete this topic HPV Vaccines Aged Out No longer eligi ble based on patient's age to complete this topic Hepatitis A Vaccines Aged Out No long er eligible based on patient's age to complete this topic Hepatitis B Vaccines Aged Out No long er eligible based on patient's age to complete this topic IPV Vaccines Aged Out No longer eligi ble based on patient's age to complete this topic MMR Vaccines Aged Out No longer eligi ble based on patient's age to complete this topic Meningococcal ACWY Vaccine Aged Out N o longer eligible based on patient's age to complete this topic Meningococcal B Vaccine Aged Out No l onger eligible based on patient's age to complete this topic RSV Immunization Patients Under 20 months Aged Out No longer eligible based on patient's age to complete this topic Varicella Vaccines Aged Out No longer eligible based on patient's age to complete this topic Insurance [facility] Care Teams Right Of Way Man Relationship Specialty Start Date End Date Joelle Bowling MD PCP - General Internal Medicine 02/04/15
== END 2024-11-28 17:03 | disposition home or self-care (01) ==
LOC: HO.HMCFM 14:35
PROVIDERS: PCP Internal Medicine; Visit Provider Internal Medicine
DX: Z00.00 Encounter for general adult medical examination without abnormal findings (principal); E11.43 Type 2 diabetes mellitus with diabetic autonomic (poly)neuropathy; N18.30 Chronic kidney disease, stage 3 unspecified

== ENCOUNTER 2025-02-27 10:53 | Outpatient (REF) | payer BC, SELFPAY ==
[2025-02-27 15:12] LABS: Alanine Aminotransferase 35 U/L (0-40); Albumin Level 4.4 g/dL (3.5-5.0); Alkaline Phosphatase 57 U/L (39-117); Anion Gap 8 (12-20); Aspartate Amino Transferase 33 U/L (5-37); Blood Urea Nitrogen 23 mg/dL (9-16); Calcium 9.5 mg/dL (8.4-10.2); Carbon Dioxide 29 mmol/L (22-29); Chloride 107 mmol/L (96-108); Cholesterol 89 mg/dL (<200); Estimated Glomerular Filt Rate 57; HDL Cholesterol 38 mg/dL (>40); Potassium 4.7 mmol/L (3.3-5.1); Sodium 139 mmol/L (135-145); Total Protein 6.9 g/dL (6.5-8.0); Triglycerides 58 mg/dL (<150)
[2025-02-27 15:27] LABS: Prostate Specific Antigen 0.70 ng/mL (<0.05-4.0)
== END 2025-02-27 10:54 | disposition home or self-care (01) ==
LOC: HO.WFDLDS 10:53
PROVIDERS: Visit Provider Internal Medicine
DX: Z12.5 Encounter for screening for malignant neoplasm of prostate (principal); N18.30 Chronic kidney disease, stage 3 unspecified; E11.22 Type 2 diabetes mellitus with diabetic chronic kidney disease; I25.118 Atherosclerotic heart disease of native coronary artery with other forms of angina pectoris; E03.9 Hypothyroidism, unspecified
CPT/HCPCS: 36415; 80053; 80061; 83036; 84153; 84443

== ENCOUNTER 2025-03-05 09:27 | Outpatient (AMB) | payer BC, SELFPAY ==
[2025-03-05 09:34] VITALS: BP 132/56; PULSE 61; RESP 14; O2SAT 96; BMI 37.0
--- NOTE | 2025-03-05 09:34 | A.OFFPC_ITS ---
Vital Signs 03/05/25 09:34 Height 6 ft 1.23 in Weight 282 lb 4 oz BMI 37.0 BP 132/56 L Blood Pressure Location Rt brachial Position Sitting Respiration 14 Pulse 61 Pulse Source Pulse Oximeter Pulse Oximetry (%) 96 Oxygen Delivery Method Room Air Intake Visit Reasons: DM Intake Note: Diabetes follow up. Chlorthalidone and Oxycodone refill. Stator Connector Required: No Allergies exenatide (From [employer]) Adverse Reaction (Intermediate, Verified 03/05/25 09:36) Vomiting Medication List - Last Reconciled 03/05/25 by Joelle Bowling MD atorvastatin 80 mg PO DAILY carvedilol 12.5 mg PO BID chlorthalidone 12.5 mg (1/2 x 25 mg) PO QAM clopidogrel 75 mg PO DAILY levothyroxine (Synthroid) 75 mcg PO DAILY losartan 100 mg PO DAILY metformin 1,000 mg (2 x 500 mg) PO BID nifedipine ER 60 mg PO DAILY nitroglycerin 0.4 mg sublingual Q5M PRN MDD 2 tab oxycodone 5 mg PO QID PRN 7 days pioglitazone 30 mg PO DAILY sertraline 25 mg PO DAILY tamsulosin 0.8 mg (2 x 0.4 mg) PO DAILY Tobacco use date assessed: 11/28/24 Dental Screening Dental Screen Date: 11/28/24 HPI HPI Comments History of Present Illness Details The patient is a 74 year old male with a past medical history of RICARDO on cpap, CAD s/p PCI 2006, HFPEF, hypertension, hyperlipidemia, type 2 diabetes, obesity presenting for follow up Endocrine-type 2 diabetes. On metformin & actos. Off insulin. Recent A1C 5.8% from 6.0%. Denies hypoglycemia CAD, CKD stage 3. Eye exam UTD Dr Morales. Intolerant GLP. Hypothyroid-stable on levothyroxine CV: Follows with cardiology, Dr Perkins. On amlodipine, losartan, ASA, chlorthalidone, hydralazine, metoprolol and plavix. s/p PCI 2006, [place] post procedure. NTG prn-about 2x/year. Chronic NELSON, stable. Denies chest pain, palpitations. Echo 12/2020 mild dilation ascending aorta grade 1 diastolic dysfunction EF 55-60%. Heme/Onc: Mild anemia. cologuard (-). Has refused colonoscopy. stable post prandial nausea. On oral B12. MSK: Chronic low back pain-stable. Stopping him from doing exercise. GI: Hepatic steatosis: CT abd/pelvis 2019 hepatic steatosis Eye exam 10/2023-no retinopathy. Recent cataract surgery. Doing well. PSA 02/2024 WNL. Sees urology 1x/year Following with dermatology-[place] 11/24/2024-COVID, FLU received. ROS see HPI PHYSICAL EXAM: GENERAL: Alert and oriented x 3. NAD EYES: EOMI. Anicteric. HENT: Moist mucous membranes. No scleral icterus. No cervical lymphadenopathy. LUNGS: Clear to auscultation bilaterally. CARDIOVASCULAR: Regular rate and rhythm. No murmur. No JVD. ABDOMEN: Soft, non-tender +bs EXTREMITIES: No edema. Non-tender. SKIN: No rashes or lesions. Warm. NEUROLOGIC: No focal neurological deficits. CN II-XII grossly intact PSYCHIATRIC: Cooperative. Appropriate mood and affect [facility] Medical History Bilateral cataracts Hernia Severe obesity (BMI 35.0-35.9 with comorbidity) Seasonal allergies Pain in thoracic spine Obstructive sleep apnea syndrome Neoplasm of skin Mild anemia Loss of hearing Cognitive impairment Hypothyroidism Hyperlipidemia Hx of myocardial infarction Hepatic steatosis Diabetes mellitus Chronic kidney disease, stage 3 Chest pain Cervical spondylarthritis Benign prostatic hyperplasia Benign essential HTN Surgical History Hx of cardiac cath Hx of appendectomy H/O angioplasty H/O eye surgery Social History Housing: House Alcohol intake: former Comment: hasnt drank in 37 years Patient Tobacco Use Status: Former Tobacco user Cigarette Packs Per Day: 2 Years Smoked: 25 e-Cigarette/Vaping Use: Never Used Second Hand Smoke Exposure: Yes (past) service: Yes Current occupational status: retired Cognitive needs: No Hearing needs: No Vision needs: Yes (glasses) Questionnaire Thrive Questionnaire Date Thrive assessed: 07/04/24 I am a: Patient What is your living situation today?: I have a steady place to live Within the past 12 months, did the food you bought not last and you didn't have the money to get more?: Never true Within the past 12 months, did you worry whether your food would run out before you got money to buy more?: Never true Do you have trouble paying for medicines?: No Do you have trouble getting transportation to medical appointments?: No Do you have trouble paying your heating and electricity bill?: No Do you have trouble taking care of your child, family member or friend?: No Do you have trouble with day-to-day activities such as bathing, preparing meals, shopping, managing finances, etc.?: No Are you currently unemployed and looking for a job?: No Are you interested in more education?: No Please select the resources that you would like help with: None Currently or been in a relationship where the following occur: No concerns reported THRIVE Score: 0 SHANNAN-7 AMB Questionnaire SHANNAN-7 Date SHANNAN - 7 assessed: 11/01/24 Source: Developed by Drs. Roosevelt Hood, Tracee Calle, Stephon Kennedy and colleagues, with an educational rachel from [employer]. Physical exam (Primary Care) Vital Signs: Last Vital Signs Pulse 61 03/05/25 09:34 Resp 14 03/05/25 09:34 BP 132/56 L 03/05/25 09:34 Pulse Ox 96 03/05/25 09:34 Oxygen Delivery Method Room Air 03/05/25 09:34 BMI result Body Mass Index 37.0 Tobacco/Smoking Status: Tobacco use Status Tobacco use date assessed 11/28/24 03/05/25 09:38 Patient Tobacco Use Status Former Tobacco user 03/05/25 09:44 e-Cigarette/Vaping Use Never Used 03/05/25 09:44 Thrive Assessment: Date of Thrive Assessment Date Thrive assessed 07/04/24 03/05/25 09:38 Currently or been in a relationship where the following occur: No concerns reported Coding Level of Care Code Tele Est Pt Level 3 (03260) Add On Problem Visit Only Diagnoses Coronary artery disease of [place] artery of [place] heart with stable angina pectoris I25.118 Coronary Disease-Associated Artery/Lesion type: [place] artery [place] vs. transplanted heart: [place] heart Associated angina: with stable angina Hx of myocardial infarction I25.2 Type 2 diabetes mellitus with stage 3 chronic kidney disease, without long-term current use of insulin, unspecified whether stage 3a or 3b CKD E11.22; N18.30 Diabetes mellitus senior living insulin use: without senior living use Diabetes mellitus complication status: with kidney complications Diabetes mellitus complication detail: with chronic kidney disease Chronic kidney disease stage: stage 3 (moderate) Chronic kidney disease stage 3 subtype: unspecified whether 3a or 3b Assessment & Plan Assessment & Plan (1) CAD (coronary artery disease): Comment: stable. continue follow up with cardiology Code(s): I25.10 - Atherosclerotic heart disease of [place] coronary artery without angina pectoris Category: Medical Qualifiers: Coronary Disease-Associated Artery/Lesion type: [place] artery [place] vs. transplanted heart: [place] heart Associated angina: with stable angina Qualified Code(s): I25.118 - Atherosclerotic heart disease of [place] coronary artery with other forms of angina pectoris (2) Hx of myocardial infarction: Code(s): I25.2 - Old myocardial infarction Category: Medical (3) Type 2 diabetes mellitus: Code(s): E11.9 - Type 2 diabetes mellitus without complications Category: Medical Qualifiers: Diabetes mellitus senior living insulin use: without continuous churn buttermaker use Diabetes mellitus complication status: with kidney complications Diabetes mellitus complication detail: with chronic kidney disease Chronic kidney disease stage: stage 3 (moderate) Chronic kidney disease stage 3 subtype: unspecified whether 3a or 3b Qualified Code(s): E11.22 - Type 2 diabetes mellitus with diabetic chronic kidney disease; N18.30 - Chronic kidney disease, stage 3 unspecified Plan 74 year old for diabetic follow up Diabetes is controlled on current medications CV-BP stable on medications. Is up to date with cardiology [place] pain-infrequent oxycodone use-refilled Orders: Orders Lipid Panel 3 Months E11.22 - Type 2 diabetes mellitus with diabetic chronic kidney disease, N18.30 - Chronic kidney disease, stage 3 unspecified Comprehensive Met. Panel 3 Months E11.22 - Type 2 diabetes mellitus with diabetic chronic kidney disease, N18.30 - Chronic kidney disease, stage 3 unspecified Hemoglobin A1c 3 Months E11.22 - Type 2 diabetes mellitus with diabetic chronic kidney disease, N18.30 - Chronic kidney disease, stage 3 unspecified TSH reflex Free T4 3 Months E11.22 - Type 2 diabetes mellitus with diabetic chronic kidney disease, N18.30 - Chronic kidney disease, stage 3 unspecified Medications: New hydralazine 50 mg PO TID 270 tabs 3RF Refilled oxycodone partial fill upon patient request May pay out of pocket 5 mg PO QID PRN 28 tabs 0RF pain 7 days M54.9 - Dorsal jean claude, unspecified chlorthalidone 12.5 mg (1/2 x 25 mg) PO QAM 45 tabs 3RF
== END 2025-03-05 10:08 | disposition home or self-care (01) ==
LOC: HO.HMCFM 09:28
PROVIDERS: PCP Internal Medicine; Visit Provider Internal Medicine
DX: E11.22 Type 2 diabetes mellitus with diabetic chronic kidney disease (principal); N18.30 Chronic kidney disease, stage 3 unspecified; I25.118 Atherosclerotic heart disease of native coronary artery with other forms of angina pectoris; G89.29 Other chronic pain; I25.2 Old myocardial infarction